=== PATIENT | female | born 1945 | race Caucasian/White ===

== ENCOUNTER 2017-02-10 04:47 | Inpatient (IN) ==
[2017-02-10] MEDS ORDERED: Furosemide 40 MG/4 ML VIAL IVP ONE (04:48)
--- NOTE | 2017-02-10 04:53 | Emergency Department Note ---
Disposition Clinical Impression: Pulmonary edema, Acute exacerbation of CHF (congestive heart failure) Disposition: Admitted As Inpatient Condition: Critical Time of Disposition: 06:18 SOB HPI - General Chief Complaint: ED Shortness of Breath/Dyspnea Stated Complaint: MORIAH Time Seen by Provider: 02/10/17 04:48 Nursing Notes Reviewed: Yes Vital Signs Reviewed: Yes - History of Present Illness Mrs. Alcantar, a 71yo female, presents from home via EMS for abrupt onset dyspnea. Onset 01:00 AM this morning. Her symptoms were severe enough she "didn't think she was going to make it." Patient had a heart catheterization Sunday morning at this facility. She states they did not place any stents. Patient has no chest pain currently and has had no chest pain during the course of her symptoms. Patient had a heart cath Sun. No Stent. Was told her left ventricular EF was appx 20%. - Related Data Home Medications Medication Instructions Recorded Confirmed Alprazolam [Xanax] 0.5 mg PO BID PRN 11/30/14 02/09/17 Amitriptyline [Elavil] 25 - 50 mg PO HS 11/30/14 02/09/17 Aspirin Enteric Coated [Aspirin EC] 81 mg PO QAM 11/30/14 02/09/17 Cholecalciferol (Vitamin D3) 2,000 unit PO BID 11/30/14 02/09/17 [Vitamin D3] Duloxetine [Cymbalta] 20 mg PO BID 11/30/14 02/09/17 Ferrous Sulfate 65 mg PO BID 11/30/14 02/09/17 Gabapentin [Neurontin] 600 mg PO QID 11/30/14 02/09/17 Insulin Glargine,Hum.rec.anlog 62 unit SQ BID 11/30/14 02/09/17 [Lantus Solostar] Insulin LISPRO [Humalog Kwikpen 28 - 34 unit SQ TIDWM PRN 11/30/14 02/09/17 U-200] Isosorbide MONOnitrate (24 HR) 120 mg PO QAM 11/30/14 02/09/17 [Imdur] Krill/Om-3/Dha/Epa/Phospho/Ast 1 cap PO BID 11/30/14 02/09/17 [Krill Oil 1,000 mg Softgel] Multivit-Min/FA/Lycopen/Lutein 1 tab PO QAM 11/30/14 02/09/17 [Centrum Silver Tablet] Simvastatin [Zocor] 40 mg PO QPM 11/30/14 02/09/17 TraMADol [Ultram] 50 mg PO Q6HR PRN 11/30/14 02/09/17 Metoprolol Succinate 50 mg PO DAILY 02/09/17 02/09/17 Ranitidine HCl [Heartburn Relief] 150 mg PO BID 02/09/17 02/09/17 Ranolazine [Ranexa] 500 mg PO BID 02/09/17 02/09/17 Allergies Allergy/AdvReac Type Severity Reaction Status Date / Time Penicillins Allergy Severe Rash Verified 02/09/17 08:29 All systems ED: reviewed and negative except as stated. Review of Systems: As Per [facility] Past Medical History - Past Medical History Medical history: Reports: arthritis, cancer, cardiomyopathy, CHF, COPD, coronary artery disease, diabetes, GERD, hyperlipidemia, hypertension, kidney stones, malignancy Surgical history: Reports: breast surgery, cancer surgery, cholecystectomy, hysterectomy, knee replacement Psychiatric history: Reports: anxiety, depression - Social History Smoking Status: Never smoker Smokeless Tobacco Status: No Alcohol use: Reports: none Drug use: Reports: none Physical Exam Vital Signs Reviewed General: Patient is alert, oriented, and in no acute distress. HEENT: No facial asymmetry. Head is normocephalic and atraumatic. PERRLA, EOMI. oral mucosa tacky. Trachea midline. Cardiovascular: Heart tachycardic rate and regular rhythm without clicks, rubs, gallops, or murmurs. No JVD. PMI nondisplaced. No pedal edema. Bilateral radial and posterior tibial pulses 2/4 and equal. Respiratory: Symmetric chest rise with poor respiratory effort. Bilateral breath sounds diminished with diffuse crackles and coarse lung sounds. Abdomen: Bowel sounds present normoactive x-4 quadrants. Abdomen is soft, nondistended, and nontender. Skin: Warm, dry Psych: Patient's affect is appropriate for situation. Course Course Narrative: Patient presents with pulmonary edema likely cardiogenic in origin. Her lung sounds are coarse with crackles throughout. She is saturating in the mid to high 80s on room air; does not use oxygen at home. Her ejection fraction is 25 % with multiple coronary artery vessel disease. Wildlife Refuge Manager report shows that aggressive medical management was recommended. Positive chest pain workup and place patient on BiPAP at this time. Patient's troponin is 0.06 BNP in the 500s. Her creatinine is elevated however this is her baseline. Patient does have a history of elevated troponin. Unknown if this is from prior cardiac events or from chronic kidney disease. I spoke with the admitting hospitalist, Dr. Perez, agreed to accept the patient. His recommendation was to start heparin on the patient while she was in the emergency department. I discussed this with the patient and her at bedside. They were concerned about risks of bleeding and preferred that I speak with Dr. Reese, her riveter portable machine. I explained to them that I cannot speak to Dr. Reese at this time of day. I discussed in detail the risks and benefits involved with using heparin in light of her multivessel severe coronary artery disease and likely cardiogenic pulmonary edema. They prefer to wait at this time to, "think about it." Vital Signs Temperature 97.9 F 02/10/17 04:48 Pulse Rate 100 02/10/17 04:48 Respiratory Rate 20 02/10/17 04:48 Blood Pressure 129/79 02/10/17 04:48 O2 Sat by Pulse Oximetry 93 02/10/17 04:48 Temperature 97.9 F 02/10/17 04:48 Pulse Rate 90 02/10/17 06:30 Respiratory Rate 19 02/10/17 06:30 Blood Pressure 109/74 02/10/17 06:30 O2 Sat by Pulse Oximetry 97 02/10/17 06:30 Oxygen Delivery Oxygen Delivery Bipap Shortness of Breath/Dyspnea - Medical Records Medical records reviewed: Yes I reviewed the patient's medical records. - Lab Data Lab results reviewed: Yes I reviewed the patient's lab results. Result diagrams: 02/10/17 06:35 02/10/17 05:02 Lab Results 02/10/17 02/10/17 02/10/17 Range/Units 05:02 05:02 05:02 WBC 8.6 (4.3-11.1) K/mcL RBC 4.29 (3.82-4.97) M/mcL Hgb 13.1 (11.5-15.4) g/dL Hct 41.0 (35.3-44.9) % MCV 95.6 (83.0-100.0) fL MCH 30.5 (28.0-33.3) pg MCHC 32.0 (31.6-35.5) g/dL RDW 13.3 (11.5-14.5) % Plt Count 212 (140-400) K/mcL MPV 10.0 (9.4-12.4) fL Immature Gran % 0.5 (0-4) % Seg Neutrophils % 77.0 % Lymphocytes % 13.3 % Monocytes % 7.0 % Eosinophils % 2.1 % Basophils % 0.1 % Neutrophils # 6.6 (1.6-8.9) K/mcL Lymphocytes # 1.1 (0.6-4.6) K/mcL Monocytes # 0.6 (0.0-1.3) K/mcL Eosinophils # 0.2 (0.0-0.6) K/mcL Basophils # 0.0 (0.0-0.2) K/mcL Immature Plt Fraction (1.1-6.1) % PT (9.4-12.1) Seconds INR Sodium 137 (136-145) mEq/L Potassium 4.6 H (3.5-4.5) mEq/L Chloride 104 (98-109) mEq/L Carbon Dioxide 24 (19-29) mEq/L BUN 24 H (7-20) mg/dL Creatinine 1.51 H (0.57-1.11) mg/dL Est GFR ( Amer) 41 L (> 60) Est GFR (Non-Af Amer) 34 L (> 60) BUN/Creatinine Ratio 16 (6-26) Glucose 211 H (70-99) mg/dL Calculated Osmolality 294 (280-300) Calcium 9.7 (8.6-10.8) mg/dL Troponin I 0.06 H* (0-0.03) ng/mL B-Natriuretic Peptide (0-100) pg/mL 02/10/17 02/10/17 02/10/17 Range/Units 05:02 05:02 06:35 WBC 8.0 (4.3-11.1) K/mcL RBC 4.07 (3.82-4.97) M/mcL Hgb 12.5 (11.5-15.4) g/dL Hct 38.5 (35.3-44.9) % MCV 94.6 (83.0-100.0) fL MCH 30.7 (28.0-33.3) pg MCHC 32.5 (31.6-35.5) g/dL RDW 13.3 (11.5-14.5) % Plt Count 209 (140-400) K/mcL MPV 10.1 (9.4-12.4) fL Immature Gran % (0-4) % Seg Neutrophils % % Lymphocytes % % Monocytes % % Eosinophils % % Basophils % % Neutrophils # (1.6-8.9) K/mcL Lymphocytes # (0.6-4.6) K/mcL Monocytes # (0.0-1.3) K/mcL Eosinophils # (0.0-0.6) K/mcL Basophils # (0.0-0.2) K/mcL Immature Plt Fraction 4.2 (1.1-6.1) % PT 11.0 (9.4-12.1) Seconds INR 1.0 Sodium (136-145) mEq/L Potassium (3.5-4.5) mEq/L Chloride (98-109) mEq/L Carbon Dioxide (19-29) mEq/L BUN (7-20) mg/dL Creatinine (0.57-1.11) mg/dL Est GFR ( Amer) (> 60) Est GFR (Non-Af Amer) (> 60) BUN/Creatinine Ratio (6-26) Glucose (70-99) mg/dL Calculated Osmolality (280-300) Calcium (8.6-10.8) mg/dL Troponin I (0-0.03) ng/mL B-Natriuretic Peptide 568 H (0-100) pg/mL - Radiology Data Radiology results reviewed: Yes I reviewed the patient's radiology results. - EKG Data EKG attestation: Yes I reviewed and interpreted this EKG. EKG results narrative: EKG dated 02/10/17 at 04:53 interpreted as sinus rhythm with a rate of 99. Normal intervals. Left axis. Left bundle branch block which is appropriately discordant and unchanged from compared to EKG. Nonspecific ST-T changes. Compared to previous EKG dated 12/01/2014 showing no acute ischemic changes. Critical Care Time Critical Care Time: Yes Total Critical Care Time: 40 Attestation: Critical care performed: Time is exclusive of separately billable procedures. Time includes: direct patient care, patient reassessment, coordination of patient care, interpretation of data (laboratory data, radiology data, and respiratory data), review of patient's medical records, medical consultation and documentation of patient care. Procedures included in critical care time: Procedures excluded from critical care time: Attestation Statement - Attestation Attestation: I, Dandre Quinonez MD, personally evaluated this patient and discussed their management with the resident physician. I reviewed the resident's note and agree with the documented findings, medical decision making, and plan of care. 71-year-old female presents to the emergency department by EMS with a complaint of shortness of breath which started about 1 AM this morning and has gotten progressively worse throughout the night. Patient unable to sleep due to shortness of breath. She denies any chest pain. Patient just had a cardiac catheterization done here yesterday. She did not have any stents placed. There has been no increased cough or fever. On examination patient is a well-developed well-nourished elderly female in no acute distress. She is alert and oriented 3. There is no cyanosis or diaphoresis. Chest is nontender to palpation. Breath sounds are equal bilaterally with bibasilar moist rales. No wheezes. Heart regular rate and rhythm. Abdomen soft and nontender with normal bowel sounds. EKG shows a normal sinus rhythm heart rate in 99 and left bundle-branch block which was present on prior EKG. Chest x-ray shows pulmonary edema. Labs reviewed. Troponin 0.06. Patient received IV Lasix and morphine and was placed on BiPAP. She had significant improvement in her dyspnea after treatment. The hospitalist, Dr. Perez, was consulted and accepted admission of the patient.
[2017-02-10] MEDS ORDERED: *HR* Morphine 2 MG/ML SYRINGE IVP ONE (04:54)
[2017-02-10 05:11] LABS: Basophils % 0.1 %; Eosinophils # 0.2 K/mcL (0.0-0.6); Eosinophils % 2.1 %; Hemoglobin 13.1 g/dL (11.5-15.4); Immature Granulocytes % 0.5 % (0-4); Lymphocytes # 1.1 K/mcL (0.6-4.6); Lymphocytes % 13.3 %; Mean Corpuscular Hemoglobin 30.5 pg (28.0-33.3); Mean Corpuscular Volume 95.6 fL (83.0-100.0); Monocytes # 0.6 K/mcL (0.0-1.3); Neutrophils # 6.6 K/mcL (1.6-8.9); Platelet Count 212 K/mcL (140-400); Red Blood Count 4.29 M/mcL (3.82-4.97); Red Cell Distribution Width 13.3 % (11.5-14.5)
[2017-02-10 05:25] LABS: Calcium 9.7 mg/dL (8.6-10.8); Potassium 4.6 mEq/L (3.5-4.5)
[2017-02-10] MEDS ORDERED: *HR* Heparin 5,000 UNIT/ML VIAL IVP ONE (06:15)
[2017-02-10] MEDS ORDERED: *HR* Heparin 5,000 UNIT/ML VIAL IVP PRN ×2 (06:15)
--- NOTE | 2017-02-10 06:20 | Internal Med History&Physical ---
Date of Encounter: 02/10/17 Time of Encounter: 06:17 Assessment and Plan (1) Flash pulmonary edema Current visit: Yes Status: Acute Flash pulmonary edema which may be related to angina equivalent patients with 3- vessel disease. Patient was placed on BiPAP in the emergency room and given IV Lasix. I will start the patient on heparin drip for possibility of an ischemic event. Patient has ischemic cardiomyopathy with ejection fraction of 25%. She had a recent angiogram shows 3 vessel disease and surgery was deemed to be high- risk in this patient and it was decided to pursue medical treatment. We will start patient on IV Lasix. (2) 3-vessel CAD Current visit: Yes Status: Acute 3 vessel disease in a diabetic patient, however her ejection fraction is 20%. Will consult cardiology again because of this event the flash pulmonary edema. (3) Diabetes mellitus type 2 in obese Current visit: No Status: Chronic Internal Medicine - H&P: HPI Chief complaint: sob History of present illness: Ms. Alcantar is a 71 year old female with history of 3 vessel disease, ischemic cardiomyopathy (EF 25%) on medical treatment presents to the emergency room today with a main complaint of shortness of breath. At approximately 1 AM as a patient was about to sleep, she started experiencing sudden onset shortness of breath at rest associated with profuse sweating and nonproductive cough. She presented to the emergency room where she was hypoxic in the 80s and was placed on BiPAP due to increased work of breathing. X-ray was suggestive of pulmonary edema. Patient denies any chest. No fevers chills. No sputum production. She mentioned that she does not take Lasix at home. Past Med Surg Social Fam HX - Past Medical History Medical history: arthritis, cancer, cardiomyopathy, CHF, COPD, coronary artery disease, diabetes, GERD, hyperlipidemia, hypertension, kidney stones, malignancy Psychiatric history: anxiety, depression - Past Surgical History Surgical History: breast surgery, cancer surgery, cholecystectomy, hysterectomy , knee replacement - Social History Smoking Status: Never smoker Smokeless Tobacco Status: No Alcohol use: none Drug use: none - Family History Mother Family Member Ethnicity: Non- Living Status: Still Living Hx Family Cardiac Disorders: Yes Hx Family Respiratory Disorders: Yes Hx Family Cancer: No Hx Family GI Disorders: No Hx Family Endocrine Disorder: Yes Hx Family Neuromuscular Disorders: Yes Hx Family Neurologic Disorders: No Hx Family HEENT Disorders: No Hx Family Autoimmune Disorders: No Father Twin of Family Member: Yes Living Status: Hx Family Cardiac Disorders: Yes Hx Family Respiratory Disorders: No Hx Family Cancer: No Hx Family GI Disorders: No Hx Family Endocrine Disorder: No Hx Family Neuromuscular Disorders: No Hx Family Neurologic Disorders: No Hx Family HEENT Disorders: No Hx Family Autoimmune Disorders: No Internal Medicine - H&P: Meds Alprazolam [Xanax] 0.5 mg PO BID PRN 11/30/14 [History] Amitriptyline [Elavil] 25 - 50 mg PO HS 11/30/14 [History] Aspirin Enteric Coated [Aspirin EC] 81 mg PO QAM 11/30/14 [History] Cholecalciferol (Vitamin D3) [Vitamin D3] 2,000 unit PO BID 11/30/14 [History] Duloxetine [Cymbalta] 20 mg PO BID 11/30/14 [History] Ferrous Sulfate 65 mg PO BID 11/30/14 [History] Gabapentin [Neurontin] 600 mg PO QID 11/30/14 [History] Insulin Glargine,Hum.rec.anlog [Lantus Solostar] 62 unit SQ BID 11/30/14 [ History] Insulin LISPRO [Humalog Kwikpen U-200] 28 - 34 unit SQ TIDWM PRN 11/30/14 [ History] Isosorbide MONOnitrate (24 HR) [Imdur] 120 mg PO QAM 11/30/14 [History] Krill/Om-3/Dha/Epa/Phospho/Ast [Krill Oil 1,000 mg Softgel] 1 cap PO BID [History] Multivit-Min/FA/Lycopen/Lutein [Centrum Silver Tablet] 1 tab PO QAM 11/30/14 [ History] Simvastatin [Zocor] 40 mg PO QPM 11/30/14 [History] TraMADol [Ultram] 50 mg PO Q6HR PRN 11/30/14 [History] Metoprolol Succinate 50 mg PO DAILY 02/09/17 [History] Ranitidine HCl [Heartburn Relief] 150 mg PO BID 02/09/17 [History] Ranolazine [Ranexa] 500 mg PO BID 02/09/17 [History] 3 Allergy/AdvReac Type Severity Reaction Status Date / Time Penicillins Allergy Severe Rash Verified 02/09/17 08:29 All Systems PM: A 10-system review of systems was performed and is negative for pertinent findings except as documented above in the HPI. Review of systems: 10 point review of systems is negative except for HPI - Constitutional Vitals: Temp Pulse Resp BP Pulse Ox 97.9 F 97 18 123/99 96 02/10/17 04:48 02/10/17 06:06 02/10/17 06:06 02/10/17 06:06 02/10/17 06:06 Exam: Gen.: patient is alert oriented times 3 not in distress cardiac: Normal S1, S2, no additional sounds or murmurs chest: bilateral basal crackles Abdomen: Soft, non tender, No rebound lower extremity Lax calf muscles no swelling Neuro: no focal deficits Internal Med - H&P Results - Labs CBC & Chem 7: 02/10/17 05:02 02/10/17 05:02 Labs: Short CBC 02/10/17 Range/Units 05:02 WBC 8.6 (4.3-11.1) K/mcL Hgb 13.1 (11.5-15.4) g/dL Hct 41.0 (35.3-44.9) % Plt Count 212 (140-400) K/mcL Neutrophils # 6.6 (1.6-8.9) K/mcL BMP 02/10/17 05:02 Sodium 137 Potassium 4.6 H Chloride 104 Carbon Dioxide 24 BUN 24 H Creatinine 1.51 H Glucose 211 H Calcium 9.7 Cardiac Enzymes 02/10/17 Range/Units 05:02 Troponin I 0.06 H* (0-0.03) ng/mL - Impressions ITS Impressions Chest X-Ray 02/10/17 04:48 IMPRESSION: Pulmonary edema. D/ / Elvis Dwyer MD / Elvis Dwyer MD Interpreting Provider: Elvis Dwyer MD
[2017-02-10 06:42] LABS: Hematocrit 38.5 % (35.3-44.9); Hemoglobin 12.5 g/dL (11.5-15.4); Immature Platelets 4.2 % (1.1-6.1); Mean Corpuscular HGB Conc 32.5 g/dL (31.6-35.5); Mean Corpuscular Hemoglobin 30.7 pg (28.0-33.3); Mean Corpuscular Volume 94.6 fL (83.0-100.0); Mean Platelet Volume 10.1 fL (9.4-12.4); Red Blood Count 4.07 M/mcL (3.82-4.97); Red Cell Distribution Width 13.3 % (11.5-14.5)
[2017-02-10 06:47] LABS: Activated Partial Thrombo Time 25.3 Seconds (26.0-36.0)
--- NOTE | 2017-02-10 09:40 | Cardiology Consult Note ---
<Earl Zamora - Last Filed: 02/10/17 09:47> Date of Encounter: 02/10/17 Time of Encounter: 09:34 Assessment and Plan (1) Elevated troponin Current Visit: Yes Status: Acute Mild troponin elevation at 0.06 in the setting of pulmonary edema and hypoxia. Continue to trend. Newly diagnosed with systolic CHF and three vessel CAD yesterday. [facility] 02/09/17-20% stenosis in the LMCA. Distal LAD and 1st DX is small in size. 60% stenosis in the Mid LAD- FFR 0.83. 70% stenosis in the Distal LAD- small vessel 70% stenosis in the 1st Diagonal- small vessel. 50% stenosis in the Mid Circumflex- FFR 0.96. 60% stenosis in the 1st Marginal. 90% stenosis in the Left PDA- small vessel. Right Coronary Artery is small and non-dominant. 95% stenosis in the Mid RCA. EF 25%. No intervention. Medical management recommended. TTE 01/24/17-Severe LV systolic dysfunction, LVEF 20%. There is global LV hypokinesis. Mild concentric left ventricular hypertrophy. Elevated LV filling pressure. Normal right ventricular size and function. No significant valvular dysfunction. Unable to estimate RVSP due to inadequate TR jet. Agree with heparin gtt per ACS protocal until further trending of troponin. Check asa, statin, and bb. Dr. Ruiz to review [facility] films. Further recommendation to follow. (2) Acute on chronic systolic CHF (congestive heart failure) Current Visit: Yes Status: Acute EF recently found to be 20% with severe global dysfunction. EF 25% on [facility] . Developed pulmonary edema last night. Secondary to IV fluid andreea procedure vs ACS. Agree with IV lasix. Trend troponin. Strict I&O. Low sodium diet. CHF education reviewed. Continue toprol XL. No keanu inhibitor at this time Known CKD s/p [facility] yesterday. If kidney function remains stable will consider adding. may need maintenance lasix at discharge. (3) 3-vessel coronary artery disease Current Visit: No Status: Chronic Asa, statin, bb. Discussion w patient/family: The assessment and plan as outlined above was discussed with the patient and/or family members who expressed understanding and agreement. All questions were answered. Thank you for involving us in the care of your patient. Please call with any questions. History of Present Illness Consult date: 02/10/17 Requesting physician: Pastor Perez Consult reason: Pulmonary edema after LHC Chief complaint: SOB History of present illness: Ms. Alcantar is a 71 year old female with a history of recently diagnosed three vessel CAD, DM type II, HTN, HLD, CKD, and COPD who presents with sudden onset of SOB that woke her from her sleep. She underwent out-patient diagnostic LHC yesterday that revealed severe three vessel CAD and EF 25%. No intervention. There was no complications from her procedure and she was sent home with outpatient f/u with her advanced practice registered nurse. She was started on IV lasix and is responding well. She also admits to constant left shoulder pain that continues. The pain is what prompted her cardiac work-up. Her pain sometimes radiated to her jaw. Past Med Surg Social Fam HX - Past Medical History Medical history: arthritis, cancer, cardiomyopathy, CHF, COPD, coronary artery disease, diabetes, GERD, hyperlipidemia, hypertension, kidney stones, malignancy Psychiatric history: anxiety, depression - Past Surgical History Surgical History: breast surgery, cancer surgery, cholecystectomy, hysterectomy , knee replacement - Social History Smoking Status: Never smoker Smokeless Tobacco Status: No Alcohol use: none Drug use: none - Family History Mother Family Member Ethnicity: Non- Living Status: Still Living Hx Family Cardiac Disorders: Yes Hx Family Respiratory Disorders: Yes Hx Family Cancer: No Hx Family GI Disorders: No Hx Family Endocrine Disorder: Yes Hx Family Neuromuscular Disorders: Yes Hx Family Neurologic Disorders: No Hx Family HEENT Disorders: No Hx Family Autoimmune Disorders: No Father Twin of Family Member: Yes Living Status: Hx Family Cardiac Disorders: Yes Hx Family Respiratory Disorders: No Hx Family Cancer: No Hx Family GI Disorders: No Hx Family Endocrine Disorder: No Hx Family Neuromuscular Disorders: No Hx Family Neurologic Disorders: No Hx Family HEENT Disorders: No Hx Family Autoimmune Disorders: No Medications and Allergies Alprazolam [Xanax] 0.5 mg PO TID PRN 11/30/14 [History] Amitriptyline [Elavil] 25 - 50 mg PO HS 11/30/14 [History] Aspirin Enteric Coated [Aspirin EC] 81 mg PO QAM 11/30/14 [History] Gabapentin [Neurontin] 600 mg PO QID 11/30/14 [History] Insulin Glargine,Hum.rec.anlog [Lantus Solostar] 62 unit SQ BID 11/30/14 [ History] Insulin LISPRO [Humalog Kwikpen U-200] 20 - 26 unit SQ TIDWM PRN 11/30/14 [ History] Isosorbide MONOnitrate (24 HR) [Imdur] 120 mg PO QAM 11/30/14 [History] Krill/Om-3/Dha/Epa/Phospho/Ast [Krill Oil 1,000 mg Softgel] 1 cap PO BID [History] Multivit-Min/FA/Lycopen/Lutein [Centrum Silver Tablet] 1 tab PO QAM 11/30/14 [ History] Simvastatin [Zocor] 20 mg PO QPM 11/30/14 [History] TraMADol [Ultram] 50 mg PO Q6HR PRN 11/30/14 [History] Metoprolol Succinate 50 mg PO DAILY 02/09/17 [History] Ranitidine HCl [Heartburn Relief] 150 mg PO BID 02/09/17 [History] Ranolazine [Ranexa] 500 mg PO BID 02/09/17 [History] DULoxetine [Cymbalta] 30 mg PO BID 02/10/17 [History] 3 Allergy/AdvReac Type Severity Reaction Status Date / Time Penicillins Allergy Severe Rash Verified 02/09/17 08:29 All Systems Review: A 10-system review of systems was performed and is negative for pertinent findings except as documented above in the HPI. Physical Examination Vital Signs Temp Pulse Resp BP Pulse Ox 02/10/17 07:46 98.2 F 91 18 137/81 96 02/10/17 06:30 90 19 109/74 97 02/10/17 06:06 97 18 123/99 96 02/10/17 05:25 92 15 104/68 97 02/10/17 05:23 98 02/10/17 05:00 19 112/86 100 02/10/17 04:48 97.9 F 100 20 129/79 93 Intake and Output 02/09/17 02/10/17 02/10/17 23:59 07:59 15:59 Other: Weight 80.739 kg Blood Glucose* 183 Patient Weight 02/10/17 23:59 Weight 80.739 kg General: Conversant, No Apparent Distress HEENT: Atraumatic, Normocephaly, Mucus Membranes Moist Neck: No JVD, Normal carotid pulses Cardiac: Reg Rate and Rhythm, Normal S1 and S2, No Murmur Lungs: Normal Breath Sounds, No Wheeze, Rales, Rhonchi Neuro: Alert and responsive, No focal deficits noted Abdomen: Soft, Non-Tender, Other (abdomen round but soft. ) Skin: No rashes noted on visualized skin Musculoskeletal: No Chest Wall Tenderness Extremities: No Clubbing, No Cyanosis, No Edema, Normal Pulses Results 02/10/17 06:35 02/10/17 05:02 - Imaging and Cardiology Echo: report reviewed Cardiac cath: report reviewed Consult Discharge Plan - Plan Referrals: Merlene Lazo CNP [Primary Care Provider] - <Zaheer Ruiz - Last Filed: 02/10/17 22:04> Date of Encounter: 02/10/17 - Attending Attestation I have personally performed a face to face evaluation on this patient. I have reviewed and agree with the care plan. History and Exam by me shows: 71 YOF with h/o CAD and disease as outlined above. Presents with chest pain and worsening HOWARD with dynamic troponins. EF 20%on most recent ECHO with no significant valvular abnormalities. Recommend LHC and possible PCI of the OM3 and reevaluation with FFR of the mid LAD (previous FFR .83) Will start ACS meds meanwhile and repeat troponins. Assessment and Plan Discussion w patient/family: The assessment and plan as outlined above was discussed with the patient and/or family members who expressed understanding and agreement. All questions were answered. Thank you for involving us in the care of your patient. Please call with any questions. History of Present Illness History of present illness: Ms. Alcantar is a 71 year old female All Systems Review: A 10-system review of systems was performed and is negative for pertinent findings except as documented above in the HPI. Physical Examination Vital Signs, Last 4 Hours Temp Pulse Resp BP Pulse Ox 02/10/17 19:47 98.5 F 74 18 120/80 97 02/10/17 19:20 84 Results 02/10/17 06:35 02/10/17 05:02 Lab Results 02/10/17 02/10/17 11:14 16:28 APTT 75.6 H D Troponin I 0.43 H*
[2017-02-10] MEDS: Insulin LISPRO 300 UNITS/3 ML VIAL SQ SCH ×4 (09:51→20:57)
[2017-02-10] MEDS: Furosemide 20 MG/2 ML VIAL IVP SCH (09:58)
[2017-02-10] MEDS: Isosorbide MONOnitrate (24 HR) 60 MG TAB.ER.24H PO SCH (10:00)
[2017-02-10] MEDS: Ranolazine 500 MG TAB.ER.12H PO SCH ×2 (10:00→20:56)
[2017-02-10] MEDS: Famotidine 20 MG TABLET PO SCH ×2 (10:00→20:57)
[2017-02-10] MEDS: Aspirin Enteric Coated 81 MG Tablet PO SCH (10:00)
[2017-02-10] MEDS: Metoprolol XL (24 HR) Succ 50 MG TAB.ER.24H PO SCH (10:00)
[2017-02-10] MEDS: Heparin 25,000 UNIT/500 ML D5W 25,000 UNIT/500 ML MLS IVC SCH (10:04)
[2017-02-11] MEDS: Aspirin Enteric Coated 81 MG Tablet PO SCH (07:56)
[2017-02-11] MEDS: Metoprolol XL (24 HR) Succ 50 MG TAB.ER.24H PO SCH (07:56)
[2017-02-11] MEDS: Isosorbide MONOnitrate (24 HR) 60 MG TAB.ER.24H PO SCH (07:56)
[2017-02-11] MEDS: Famotidine 20 MG TABLET PO SCH (07:56)
[2017-02-11] MEDS: Ranolazine 500 MG TAB.ER.12H PO SCH ×2 (07:56→20:20)
[2017-02-11] MEDS: Furosemide 20 MG/2 ML VIAL IVP SCH (07:56)
[2017-02-11] MEDS: Insulin LISPRO 300 UNITS/3 ML VIAL SQ SCH ×4 (07:58→23:45)
[2017-02-11] MEDS: Heparin 25,000 UNIT/500 ML D5W 25,000 UNIT/500 ML MLS IVC SCH (09:24)
--- NOTE | 2017-02-11 11:42 | Cardiology Progress Note ---
Date of Encounter: 02/11/17 Time of Encounter: 11:41 Assessment and Plan (1) Elevated troponin Current Visit: Yes Status: Acute Troponin elevation at 0.06, 0.43, 0.49 concerning for NSTEMI, known 3 vessel CAD. Also in the setting of pulmonary edema and hypoxia. She did have left shoulder pain. EKG LBBB, not new. Newly diagnosed with systolic CHF and three vessel CAD. [facility] 02/09/17-20% stenosis in the LMCA. Distal LAD and 1st DX is small in size. 60% stenosis in the Mid LAD- FFR 0.83. 70% stenosis in the Distal LAD- small vessel 70% stenosis in the 1st Diagonal- small vessel. 50% stenosis in the Mid Circumflex- FFR 0.96. 60% stenosis in the 1st Marginal. 90% stenosis in the Left PDA- small vessel. Right Coronary Artery is small and non-dominant. 95% stenosis in the Mid RCA. EF 25%. No intervention. Medical management recommended. TTE 01/24/17-Severe LV systolic dysfunction, LVEF 20%. There is global LV hypokinesis. Mild concentric left ventricular hypertrophy. Elevated LV filling pressure. Normal right ventricular size and function. No significant valvular dysfunction. Unable to estimate RVSP due to inadequate TR jet. [facility] films reviewed by Dr. Ruiz. Recommends LHC and possible PCI to OM severe vessel disease. Continue heparin gtt per ACS protocal. Asa, statin, and bb. Continue imdur and ranexa. NPO after midnight. Monitor creatinine. CKD. If creatinine increases-consider nephrology consult. (2) Acute on chronic systolic CHF (congestive heart failure) Current Visit: Yes Status: Acute EF recently found to be 20% with severe global dysfunction. EF 25% on [facility] . Developed pulmonary edema. continue IV lasix. Strict I&O. Low sodium diet. CHF education reviewed. Continue toprol XL. No keanu inhibitor at this time Known CKD s/p [facility] yesterday. If kidney function remains stable will consider adding. may need maintenance lasix at discharge. (3) 3-vessel coronary artery disease Current Visit: No Status: Chronic Asa, statin, bb. Discussion w patient/family: The assessment and plan as outlined above was discussed with the patient and/or family members who expressed understanding and agreement. All questions were answered. Thank you for involving us in the care of your patient. Please call with any questions. Subjective Principal diagnosis: Dyspnea, pulmonary edema Interval history: Reports she is feeling better. Denies left shoulder pain. Objective Vital Signs, Last 4 Hours Temp Pulse Resp BP Pulse Ox 02/11/17 11:12 98.0 F 79 18 112/64 97 General: Conversant, No Apparent Distress HEENT: Atraumatic, Normocephaly, Mucus Membranes Moist Neck: No JVD, Normal carotid pulses Cardiac: Reg Rate and Rhythm, Normal S1 and S2, No Murmur Lungs: Normal Breath Sounds, No Wheeze, Rales, Rhonchi, Other (diminished bases) Neuro: Alert and responsive, No focal deficits noted Abdomen: Soft, Non-Tender Skin: No rashes noted on visualized skin Musculoskeletal: No Chest Wall Tenderness Extremities: No Clubbing, No Cyanosis, No Edema, Normal Pulses Results 02/10/17 06:35 02/10/17 05:02 Lab Results 02/10/17 02/10/17 02/10/17 11:14 16:28 22:18 APTT 75.6 H D 75.1 H Troponin I 0.43 H* 02/10/17 02/11/17 22:18 04:28 APTT 69.5 H Troponin I 0.39 H* - Imaging and Cardiology Echo: report reviewed Cardiac cath: report reviewed - EKG Interpretation EKG results cardiology: personally reviewed Consult Discharge Plan - Plan Referrals: Merlene Lazo ENGINEERING INSPECTOR [Primary Care Provider] -
--- NOTE | 2017-02-11 14:00 | Internal Med Progress Note ---
Date of Encounter: 02/11/17 Time of Encounter: 09:00 - Assessment and plan (1) NSTEMI (non-ST elevated myocardial infarction) Current Visit: Yes Status: Acute Assessment and plan: Non-ST elevation CO - with elevated troponin - currently asymptomatic Patient initially presented with flash pulmonary edema Continue IV Heparin per protocol, Aspirin, Plavix, Zocor Continue Ranexa, Imdur, hold ACEi/ARB due to CKD [facility] (02/09/2017) - triple-vessel coronary artery disease with severe global LV dysfunction with EF 25%. Patient had distal lesions and vessels were too small for stenting. Patient will need repeat [facility] for non-STEMI on this admission. Possible PCI to OM severe vessel disease Troponin - 0.39 BNP - 568 EKG - sinus rhythm, nonspecific ST-T changes, no acute changes when compared to previous EKG Chest x-ray - pulmonary edema Echocardiogram - LVEF 20%, global LV hypokinesis Cardiology following - appreciate input, [facility] in the morning Cardiac telemetry, labs in a.m., monitor closely (2) Acute on chronic systolic CHF (congestive heart failure) Current Visit: Yes Status: Acute Assessment and plan: Acute exacerbation of CHF systolic dysfunction LVEF 20-25% - ischemic cardiomyopathy - newly diagnosed - currently asymptomatic Patient initially presented with flash pulmonary edema Continue IV Lasix, Toprol-XL, Imdur, Ranexa, hold ACEi/ARB due to CKD Chest x-ray - pulmonary edema BNP - 568 Troponin - 0.39 Echocardiogram - LVEF 20%, global LV hypokinesis, normal RV size and function Cardiology following - appreciate input Cardiac telemetry, fluid restriction, strict I's and O's, daily weight (3) 3-vessel coronary artery disease Current Visit: No Status: Acute Assessment and plan: Recent C - three-vessel coronary artery disease with LVEF 25% Plan as above (4) CKD (chronic kidney disease), stage III Current Visit: Yes Status: Chronic Assessment and plan: Chronic kidney disease stage III, stable - likely at baseline Hold ACEi/ARB in view of CKD Labs in a.m. (5) COPD (chronic obstructive pulmonary disease) Current Visit: Yes Status: Chronic Assessment and plan: COPD, stable - not in exacerbation - not on any meds at home Continue DuoNeb breathing treatment PRN, O2 via nasal cannula Qualifiers: COPD type: unspecified COPD Qualified Code(s): J44.9 - Chronic obstructive pulmonary disease, unspecified (6) Diabetes mellitus type 2 in obese Current Visit: No Status: Chronic Assessment and plan: Type 2 diabetes mellitus, insulin-dependent, hyperglycemia Continue Levemir, insulin sliding scale, glucose checks (7) Anxiety Current Visit: Yes Status: Chronic Assessment and plan: Chronic anxiety with depression, stable Continue home dose of Elavil, Cymbalta, Xanax as needed (8) Hypertension Current Visit: Yes Status: Chronic Assessment and plan: Essential hypertension, controlled, monitor Continue Toprol-XL, Imdur Qualifiers: Hypertension type: essential hypertension Qualified Code(s): I10 - Essential (primary) hypertension (9) DVT prophylaxis Current Visit: Yes Status: Acute Assessment and plan: Continue IV heparin - Time Spent With Patient 25 - 35 minutes - Subjective Interval history: Examined this morning. Patient is awake and alert. Not in any distress. Patient denies chest pain at this time he denies shortness of breath. States she feels better. No fever. Hemodynamically stable. No other acute events or complaints. Admitted for elevated troponin and flash pulmonary edema. Patient had a recent LHC revealed triple-vessel coronary artery disease with severe global LV dysfunction with EF 25%. Patient had distal lesions and vessels were too small for stenting. Patient will need repeat LHC for non-STEMI on this admission. Possible PCI to OM severe vessel disease. Continue heparin drip. - Constitutional Vitals: Temp Pulse Resp BP Pulse Ox 98.0 F 79 18 112/64 97 02/11/17 11:12 02/11/17 11:12 02/11/17 11:12 02/11/17 11:12 02/11/17 11:12 General appearance: Present: cooperative, A&O X 3, pleasant, no acute distress, obese, answers questions appropriately - Head Head exam: Present: atraumatic - Eye Eye exam: Present: EOMI - ENT ENT exam: Present: mucous membranes moist - Respiratory Respiratory exam: Present: rales (Mild bibasilar). Absent: rhonchi, wheezes, tachypnea - Cardiovascular Cardiovascular exam: Present: RRR, +S1, +S2, systolic murmur - GI/Abdominal GI/Abdominal exam: Present: soft. Absent: distended, firm, guarding, tenderness - Extremities Exam Extremities exam: Present: radial pulses palpable and symmetrical. Absent: calf tenderness, cyanotic, pedal edema - Neurological Exam Neurological exam: Present: alert, oriented X3, no focal deficits. Absent: facial droop, speech deficit Internal Medicine: Result - Labs CBC & Chem 7: 02/10/17 06:35 02/10/17 05:02 Labs: Cardiac Enzymes 02/10/17 Range/Units 22:18 Troponin I 0.39 H* (0-0.03) ng/mL - ABG Interpretation ABG results: PT/INR, D-dimer PT 11.0 Seconds (9.4-12.1) 02/10/17 05:02 Consult Discharge Plan - Plan Referrals: Clifton,Merlene Horan CNP [Primary Care Provider] -
[2017-02-11] MEDS ORDERED: ALPRAZolam 0.5 MG TABLET PO PRN (14:19)
[2017-02-11] MEDS: Insulin DETEMIR 100 UNIT/ML X5UNITS SQ SCH (20:20)
[2017-02-12 03:57] LABS: Potassium 4.2 mEq/L (3.5-4.5)
[2017-02-12] MEDS: Insulin LISPRO 300 UNITS/3 ML VIAL SQ SCH ×4 (05:57→23:56)
[2017-02-12] MEDS: Famotidine 20 MG TABLET PO SCH (07:40)
--- NOTE | 2017-02-12 08:30 | Internal Med Progress Note ---
<Patricio Molina - Last Filed: 02/12/17 13:24> Date of Encounter: 02/12/17 Time of Encounter: 08:29 - Assessment and plan (1) NSTEMI (non-ST elevated myocardial infarction) Current Visit: Yes Status: Acute Assessment and plan: Cardiology consulted and have decided on repeating LHC for possible PCI to OM She is currently on heparin ggt and has been NPO since midnight awaiting the procedure Troponins were 0.06 - 0.43 - 0.39 Currently not complaining of chest pain or shortness of breath at rest Continue ASA, BB, statin, Ranexa, Imdur (2) Acute on chronic systolic CHF (congestive heart failure) Current Visit: Yes Status: Acute Assessment and plan: LHC on 02/09 demonstrated EF of 25% in setting of 3 vessel disease She developed pulmonary edema but this has clinically improved with Lasix, which has been changed to 20 mg PO Will plan on adding ACEi if her kidney function remains stable (3) CKD (chronic kidney disease), stage III Current Visit: Yes Status: Chronic Assessment and plan: Cr is 1.65 today which is slightly increased since admission, but still near her baseline Cardiology has spoken with nephrology who recommends on IVF and Mucomyst for renal protection during time of LHC Continue to monitor kidney function and avoid nephrotoxic agents (4) 3-vessel CAD Current Visit: Yes Status: Acute Assessment and plan: ASA, statin, BB, Imdur, Ranexa per cardiology as above (5) Hypertension Current Visit: Yes Status: Chronic Assessment and plan: Blood pressures stable over past few days Continue home Toprol Qualifiers: Hypertension type: essential hypertension Qualified Code(s): I10 - Essential (primary) hypertension (6) Diabetes mellitus type 2 in obese Current Visit: No Status: Chronic Assessment and plan: Sugars have remained under 200 today Continue q6 accuchecks while patient is NPO Basal dose of 62 units BID which matches her home dose (7) Anxiety Current Visit: Yes Status: Chronic Assessment and plan: Continue home dose of Elavil, Cymbalta, Xanax as needed (8) COPD (chronic obstructive pulmonary disease) Current Visit: Yes Status: Chronic Assessment and plan: Not currently in exacerbation She does not take any oxygen or inhalers at home but may benefit from both prior to discharge Qualifiers: COPD type: unspecified COPD Qualified Code(s): J44.9 - Chronic obstructive pulmonary disease, unspecified (9) DVT prophylaxis Current Visit: Yes Status: Acute Assessment and plan: Currently on Heparin ggt - Subjective Interval history: Pt seen and examined. She states she is feeling better this morning in terms of her breathing and is not struggling for air while at rest. Does not complain of any chest discomfort and had no issues with dinner last night. No fever, diarrhea, chills. She did not require BiPAP last night either but is still on nasal cannula. Confirms she has no oxygen, breathing treatments at home even though she has been diagnosed with COPD. - Constitutional Vitals: Temp Pulse Resp BP Pulse Ox 98.4 F 82 18 123/77 96 02/12/17 08:06 02/12/17 08:06 02/12/17 08:06 02/12/17 08:06 02/12/17 08:06 General appearance: Present: cooperative, pleasant, no acute distress, obese, answers questions appropriately - Head Head exam: Present: atraumatic, normocephalic - Eye Eye exam: Present: PERRL, conjuntiva pink, sclera anicteric - Neck Neck exam general surgery: Present: supple, trachea midline. Absent: lymphadenopathy - Respiratory Respiratory exam: Present: decreased breath sounds. Absent: accessory muscle use, rales, rhonchi, wheezes - Cardiovascular Cardiovascular exam: Present: distant heart sounds, RRR, +S1, +S2. Absent: diastolic murmur, gallop, rubs, systolic murmur - GI/Abdominal GI/Abdominal exam: Present: normal bowel sounds, soft, no peritoneal signs. Absent: distended, tenderness - Extremities Exam Extremities exam: Present: pedal edema (trace), warm, radial pulses palpable and symmetrical. Absent: calf tenderness, cyanotic, mottling - Neurological Exam Neurological exam: Present: alert, no focal deficits. Absent: pronater drift, facial droop, speech deficit - Skin Skin exam: Present: dry, intact Internal Medicine: Result - Labs CBC & Chem 7: 02/10/17 06:35 02/12/17 03:10 Labs: BMP 02/12/17 03:10 Sodium 136 Potassium 4.2 Chloride 102 Carbon Dioxide 27 BUN 32 H Creatinine 1.65 H Glucose 228 H Calcium 9.0 - ABG Interpretation ABG results: PT/INR, D-dimer PT 11.0 Seconds (9.4-12.1) 02/10/17 05:02 Consult Discharge Plan - Plan Referrals: Merlene Lazo CNP [Primary Care Provider] - (SENT WEB REQUEST ON 02-12-17 @ 2382) <Zackery-Jose Manuel Medina - Last Filed: 02/12/17 16:54> Date of Encounter: 02/12/17 - Assessment and plan (1) NSTEMI (non-ST elevated myocardial infarction) Current Visit: Yes Status: Acute (2) Acute on chronic systolic CHF (congestive heart failure) Current Visit: Yes Status: Acute (3) 3-vessel coronary artery disease Current Visit: No Status: Acute (4) CKD (chronic kidney disease), stage III Current Visit: Yes Status: Chronic (5) COPD (chronic obstructive pulmonary disease) Current Visit: Yes Status: Chronic Qualifiers: COPD type: unspecified COPD Qualified Code(s): J44.9 - Chronic obstructive pulmonary disease, unspecified (6) Diabetes mellitus type 2 in obese Current Visit: No Status: Chronic (7) Anxiety Current Visit: Yes Status: Chronic (8) Hypertension Current Visit: Yes Status: Chronic Qualifiers: Hypertension type: essential hypertension Qualified Code(s): I10 - Essential (primary) hypertension (9) DVT prophylaxis Current Visit: Yes Status: Acute - Constitutional Vitals: Temp Pulse Resp BP Pulse Ox 98.3 F 75 18 103/73 98 02/12/17 11:39 02/12/17 11:39 02/12/17 11:39 02/12/17 11:39 02/12/17 11:39 Internal Medicine: Result - Labs CBC & Chem 7: 02/10/17 06:35 02/12/17 03:10 Labs: BMP 02/12/17 03:10 Sodium 136 Potassium 4.2 Chloride 102 Carbon Dioxide 27 BUN 32 H Creatinine 1.65 H Glucose 228 H Calcium 9.0 - ABG Interpretation ABG results: PT/INR, D-dimer PT 11.0 Seconds (9.4-12.1) 02/10/17 05:02 - Attending Attestation I examined this patient and my medical decision-making was reviewed with the Resident Physician. I agree with the documented findings, disposition and treatment plan as described except to the extent set forth below. I have seen and examined the patient. Patient is scheduled for a LHC today. Possible PCI to OM. She is on IV heparin and has been NPO since midnight. Her acute CHF exacerbation is now improved with Lasix. She does have chronic kidney disease stage III and her creatinine is 1.65. Nephrology recommends IV fluids and Mucomyst for renal protection. Continue Accu-Cheks and basal dose of insulin. Patient and family have been explained about her condition and plan of care in detail. They understood and agreed. No unanswered questions. Heart rate 82, blood pressure 103/73, O2 sat 98%. Heart S1-S2 positive no murmurs or rubs. Lungs bilateral good entry no wheeze or crackles. Abdomen soft nontender. Extremities all pulses strong, no edema.
[2017-02-12] MEDS: Metoprolol XL (24 HR) Succ 50 MG TAB.ER.24H PO SCH (08:43)
[2017-02-12] MEDS: Ranolazine 500 MG TAB.ER.12H PO SCH ×2 (08:43→20:06)
[2017-02-12] MEDS: Isosorbide MONOnitrate (24 HR) 60 MG TAB.ER.24H PO SCH (08:43)
[2017-02-12] MEDS: Furosemide 20 MG/2 ML VIAL IVP SCH (08:44)
[2017-02-12] MEDS: Aspirin Enteric Coated 81 MG Tablet PO SCH (08:44)
[2017-02-12] MEDS: Insulin DETEMIR 100 UNIT/ML X5UNITS SQ SCH ×2 (09:00→20:06)
--- NOTE | 2017-02-12 11:46 | Event Note ---
Date of Encounter: 02/12/17 Time of Encounter: 09:00 - Cardiology Event Note Planing for C as discussed for NSTEMI. R/B/A of procedure reviewed. Kidney function appears to be near baseline. Given IV diuretic for pulmonary edema. Will change to oral lasix today. Nephrology called and notified of pending procedure. Recommended to start mucomyst and give gentle IV hydration if tolerated andreea-procedure. EF 20% will need monitored closely for fluid overload. Patient agrees to proceed as recommended.
[2017-02-12] MEDS: Heparin 25,000 UNIT/500 ML D5W 25,000 UNIT/500 ML MLS IVC SCH (11:54)
[2017-02-12] MEDS ORDERED: 0.9 % Sodium Chloride 1,000 ML IVC SCH (12:00)
[2017-02-12] MEDS ORDERED: Adenosine 90 MG/30 ML MLS IV ONE (12:53)
[2017-02-12] MEDS: *HR* Acetylcysteine 20% 600 MG/3 ML ORAL SYRINGE PO SCH ×2 (13:19→21:07)
[2017-02-12] MEDS ORDERED: 0.9 % Sodium Chloride 2,000 ML ONE (16:10)
[2017-02-12] MEDS ORDERED: Nitroglycerin 1,000 MCG/10 ML VIAL IV ONE (16:10)
[2017-02-12] MEDS ORDERED: Heparin 1,000 UNITS/500 mL NS 500 ML ONE (16:10)
[2017-02-12] MEDS ORDERED: *HR* Heparin 10,000 UNIT/10 ML VIAL ONE (16:10)
--- NOTE | 2017-02-12 16:13 | Pre-Sedation Evaluation ---
Pre-sedation evaluation - Pre-sedation checklist Date of procedure: 02/12/17 Procedure: [facility] Recent Vitals: Last Vital Signs Temp 98.3 F 02/12/17 11:39 Pulse 75 02/12/17 11:39 Resp 18 02/12/17 11:39 BP 103/73 02/12/17 11:39 Pulse Ox 98 02/12/17 11:39 H&P (including ROS) documented in medical record: Yes Previous reaction to sedatives/anesthetics: No Dietary Status: NPO after Midnight Airway Assessment: Patient can open mouth completely, TMJ function normal Dentition: full dentition Possible difficult airway: No ASA Classification *see protocol: CLASS III-Severe systemic disease Plan of Care: Pt appropriate candidate for procedure/moderate/conscious sedation , Risks/benefits of procedure/sedation discussed w/ patient/family, If not NPO; Risk of intake outweiged by necessity to perform procedure
[2017-02-12] MEDS ORDERED: *HR* Midazolam HCl 2 MG/2 ML VIAL ONE ×2 (16:24→17:17)
--- NOTE | 2017-02-12 16:57 | Electrocardiograph Report ---
[address] [place], [place] [address] Test Date: 2017-02-10 Pat Name: Megha Alcantar Department: 102 Room: 2N14 Gender: F Rn Compliance: : 1945 Requested By: Kali Chan Order Number: [id number] Reading MD: Katarzyna Lawson Measurements Intervals [place] Rate: 99 P: 34 GA: 177 QRS: -30 QRSD: 160 T: 133 QT: 400 QTc: 456 Interpretive Statements SINUS RHYTHM LEFT BUNDLE BRANCH BLOCK Electronically Signed On 02-12-2017 16:56:13 EDT by Katarzyna Lawson
[2017-02-12] MEDS: 0.9 % Sodium Chloride 1,000 ML IVC SCH (18:15)
--- NOTE | 2017-02-12 18:16 | Invasive Diagnostic Lab Proc ---
Name: Megha Alcantar Date of Study: 02/12/2017 Date: 1945 Ht: 61.0in Medical Record#: [id number] Age: 71 Wt: 171.96lb Gender: Female BSA: 1.77 Order #: [id number] BMI: 32.47 Physicians Procedure Physician: Arron Lizarraga DO Referring MD: Referring MD: Staff Name Position Time In Esau Shirley RT (R) Scrub 04:20 PM Randall Dickinson RN Monitor 04:21 PM Florina Garner RN Group Reservations Coordinator 04:21 PM Lila Cochran RN Group Reservations Coordinator 04:21 PM Elvira Crain RN Monitor 04:21 PM Indications Indication Non-Stemi Procedures Performed Procedure L HRT ARTERY/VENTRICLE ANGIO PRQ CARD BM STENT W/ANGIO 1 VSL PRQ CARD STENT W/ANGIO ADDL IV Doppler BLD Flow 1st Vessel IV Doppler BLD Flow Ad'l Vessel Pre-Procedure Checklist Informed consent is complete signed and on chart. H&P is on chart. ID band is on and ID verified with patient. Patient NPO for procedure The procedure was described for the patient and questions were answered. Blood Pressure: 137/93 ECG is on chart. Rhythm: NSR Plan of Care Patient will tolerate the procedure without complications. Adequate level of comfort will be maintained. Hemodynamics will remain stable Patient will recover from procedure without complications. Respiratory function will be maintained. Cardiac rhythm will remain stable. Patient temperature will be maintained. Patient and/or family have verbalized understanding of the procedure. Patient Education Chief Complaint/Reason for Test: Cardiac Cath Developmental Category: Geriatric (65+ years) Developmentally Appropriate for Age: Yes Learning Barriers: None Education Needs: Procedure Education Method: Verbal Information Taught: Cardiac Cath Educational Evaluation: Able to repeat information Intravenous Access Time IV Size Location DC'd Fluid/Drip Rate Units RN 20g 1 1/" Patent On Arrival Allergies Penicillins PCN Vital Signs Time BP (mmHg) HR (bpm) O2 Sat. RR (bpm) LOC 04:25 PM / % 5 = Fully awake and oriented or at pre-proc level 04:25 PM / % 4 = Oriented but drowsy 04:40 PM / % 4 = Oriented but drowsy 04:55 PM / % 4 = Oriented but drowsy 05:10 PM / % 4 = Oriented but drowsy 04:27 PM 137 / 93 86 98 % 16 04:32 PM 145 / 88 83 97 % 18 04:37 PM 148 / 94 88 99 % 26 04:42 PM 153 / 94 87 98 % 19 04:47 PM 148 / 93 86 98 % 16 04:52 PM 138 / 83 88 95 % 23 04:57 PM 138 / 76 87 97 % 20 05:02 PM 118 / 74 81 92 % 22 05:07 PM 112 / 59 82 94 % 21 05:12 PM 129 / 64 89 100 % 21 05:17 PM 146 / 90 84 100 % 21 05:22 PM 152 / 91 78 100 % 22 05:27 PM 147 / 105 78 96 % 11 05:32 PM 149 / 91 81 96 % 21 05:37 PM 138 / 91 81 98 % 13 05:42 PM 148 / 79 76 97 % 12 05:27 PM / % 4 = Oriented but drowsy Procedural Medications Time Medication Dose Units Method Given By 04:24 PM Oxygen 2 L/min nasal cannula Florina Garner RN 04:28 PM Versed 2 mg Intravenous Florina Garner RN 04:34 PM Lidocaine 2% 10 ml Subcutaneous Arron Lizarraga DO 04:47 PM Adenosine 702 ml/hr Intravenous Florina Garner RN 04:46 PM Heparin 2000 units Intravenous Florina Garner RN 05:18 PM Versed 1 mg Intravenous Florina Garner RN 05:22 PM Nitroglycerin 100 mcg Intracoronary Arron Lizarraga DO 05:38 PM Nitroglycerin 100 mcg Intravenous Arron Lizarraga DO 05:42 PM Plavix 300 mg Orally Florina Garner RN ASA Classification: CLASS III- Severe systemic disease (i.e. prior AMI, diabetes with vascular complications, morbid obesity) Wilmar Score Preprocedure Postprocedure Activity 2- Moves 4 extremities sustained head lift Activity Circulation 2- SBP +/= 20 points of pre-anesthetic level Circulation Consciousness 2- Awake and alert oriented x 3 Consciousness O2 Saturation 2- Able to maintain O2 satruation of 92% on room air O2 Saturation Respiratory 2- Able to deep breathe and cough well Respiratory Total Score 10 Total Score Contrast Agent: Isovue Diagnostic Contrast: 180 ml Total Contrast: 180 ml Fluoro Dose: 138 mGy Activated Clotting Time Time Seconds to Clot 04:46 PM 212 05:29 PM 400 Procedure Log Time Note Enter By 04:13 PM Case Start 04:13 PM CathStat 04:19 PM Pt arrived to laborer cheesemaking 2 at 16:19 [email or web address] 04:19 PM Physichonorio paged/called 16:19. [email or web address] 04:19 PM Physichonorio responded and notified patient is ready 16:19 [email or web address] 04:19 PM Physician arrived 16:19 [email or web address] 04:19 PM Meet and greet completed [email or web address] 04:19 PM Sign in performed according to hospital policy. [email or web address] 04:20 PM Procedure start 16:20 [email or web address] 04:21 PM Esau Shirley RT (R) Position: Scrub Time in: 16:20 [email or web address] 04:21 PM Randall Dickinson RN Position: Monitor Time in: 16: [email or web address] 04:21 PM Florina Garner RN Position: Group Reservations Coordinator Time in: 16:21 [email or web address] 04:21 PM Lila Cochran RN Position: Group Reservations Coordinator Time in: 16:21 [email or web address] 04:21 PM Elvira Crain RN Position: Monitor Time in: 16:21 [email or web address] 04:21 PM Patient charges- Angio tray pack, Navilyst 3mm J, Pulse Oximetry and ACIST tubing and transducer [email or web address] 04:21 PM Case Delayed no, inpatient. [email or web address] 04:21 PM Hair removed from procedure site in procedure lab using clippers. Bilateral groin prepped with Chloraprep by Esau Shirley RT (R), then patient was draped. Skin intact. [email or web address] 04:21 PM ASA Class CLASS III- Severe systemic disease (i.e. prior AMI, diabetes with vascular complications, morbid obesity) [email or web address] 04:24 PM Time: 16:24 Oxygen on at 2 L/min per nasal cannula by Florina Garner RN [email or web address] 04:25 PM Time: 16:25 Patient comfortable and pain free: Yes [email or web address] 04:25 PM Time: 16:25LOC: 5 = Fully awake and oriented or at pre-proc level [email or web address] 04:25 PM Clinical Presentation[facility] PM Vitals capture started with the following parameters, Patient=Adult, Interval=5 min, Initial Yhypdlmo=887 mmHg, Deflation Rate=5 mmHg, Cuff placed on Right Arm 04:27 PM HR=86 bpm, BNTI=503/93 mmhg, SpO2=98.0 %, Resp=16 B/min, Comment=nsr 04:28 PM Time: 16:28 Versed 2 mg Intravenous Given by Florina Garner RN [email or web address] 04:32 PM HR=83 bpm, KKWR=066/88 mmhg, SpO2=97.0 %, Resp=18 B/min, Comment=nsr 04:34 PM Time out performed according to hospital policy [email or web address] 04:34 PM Pressure channel 2 zeroed. 04:35 PM Time: 16:34 10 ml Lidocaine 2% to right groin Subcutaneous Given by Arron Lizarraga DO [email or web address] 04:36 PM Micro-Introducer Kit utilized for sheath placement [email or web address] 04:37 PM Access obtained by percutaneous puncture. 6Fr 10cm Terumo [place] sheath placed in right Femoral artery. [id number] [email or web address] 04:37 PM HR=88 bpm, PNYW=022/94 mmhg, SpO2=99.0 %, Resp=26 B/min, Comment=nsr 04:38 PM 6Fr FR 4 catheter inserted over the wire [facility] [email or web address] 04:38 PM Recorded Pressure: LV, HR=87, Condition=Condition 1 (Left Ventricle) LV 116/8/25 04:38 PM Catheter selectively placed in left ventricle [email or web address] 04:38 PM Recorded Pressure: LV, Ao, HR=87, Condition=Condition 1 (Left Ventricle) LV 136/12/28, (Aorta) Ao 139/61/103 04:39 PM Bolus angiogram of left Ventricle complete: 10 ml/sec for a total of 10 mls [email or web address] 04:39 PM catheter repositioned to RCA [email or web address] 04:39 PM RCA angiography performed in multiple views. [email or web address] 04:39 PM Catheter removed [email or web address] 04:40 PM 6Fr JL4 Cordis guide catheter was used to cannulate the PCI vessel successfully. reused? No [email or web address] 04:40 PM Time: 16:25LOC: 4 = Oriented but drowsy [email or web address] 04:40 PM Time: 16:25 Patient comfortable and pain free: Yes [email or web address] 04:41 PM Recorded Pressure: Ao, HR=88, Condition=Condition 1 (Aorta) Ao 127/71/94 04:41 PM LCA angiography performed in multiple views. [email or web address] 04:42 PM HR=87 bpm, BRAD=494/94 mmhg, SpO2=98.0 %, Resp=19 B/min, Comment=nsr 04:43 PM Recorded Pressure: Ao, HR=88, Condition=Condition 1 (Aorta) Ao 136/75/101 04:43 PM Pressure channel 3 zeroed. 04:44 PM Comet Pressure Guidewire advanced to target lesion. [email or web address] 04:44 PM Inflation device was opened. [email or web address] 04:44 PM Pressure channel 2 zeroed. 04:46 PM At 16:46 the ACT was 212 seconds. [email or web address] 04:46 PM Time: 16:46 Heparin 2000 units Intravenous Given by Florina Garner RN [email or web address] 04:46 PM Pressure channel 3 equalized to channel 2. 04:47 PM HR=86 bpm, FDNX=595/93 mmhg, SpO2=98 %, Resp=16 B/min 04:47 PM Time: 16:47 Adenosine 702 ml/hr Intravenous Given by Florina Garner RN [email or web address] 04:48 PM FFR: Value=0.98, Condition=Condition 1, Device=VOLCANO PRIME WIRE 04:48 PM Recorded Pressure: Ao, PV1, FFR=0.98, HR=85, Condition=Condition 1 (Aorta) Ao 125/64/87, (Portal Vein) PV1 115/120/86 04:50 PM Adenosine stopped. [email or web address] 04:50 PM FFR Measurement: 0.98, mid CIRC [email or web address] 04:50 PM Pressure channel 3 equalized to channel 2. 04:52 PM HR=88 bpm, EUEN=872/83 mmhg, SpO2=95.0 %, Resp=23 B/min, Comment=nsr 04:52 PM Flow wire repositioned to 3rd OM. [email or web address] 04:53 PM Recorded Pressure: Ao, PV1, FFR=0.85, HR=80, Condition=Condition 1 (Aorta) Ao 125/63/88, (Portal Vein) PV1 104/107/75 04:53 PM FFR: Value=0.85, Site=Marginal3, Condition=Condition 1, Device=VOLCANO PRIME WIRE 04:53 PM Adenosine restarted. [email or web address] 04:55 PM FFR Measurement: 0.85, OM3 [email or web address] 04:55 PM Time: 16:40 Patient comfortable and pain free: Yes [email or web address] 04:55 PM Time: 16:40LOC: 4 = Oriented but drowsy [email or web address] 04:57 PM HR=87 bpm, ZDWE=201/76 mmhg, SpO2=97.0 %, Resp=20 B/min, Comment=nsr 04:57 PM Pressure channel 3 equalized to channel 2. 05:00 PM Flow Wire removed intact [email or web address] 05:01 PM Pressure channel 3 zeroed. 05:02 PM [place] Prime Wire Prestige advanced to target lesion. [email or web address] 05:02 PM HR=81 bpm, XQDR=037/74 mmhg, SpO2=92.0 %, Resp=22 B/min, Comment=nsr 05:02 PM Pressure channel 2 zeroed. 05:04 PM Pressure channel 3 equalized to channel 2. 05:06 PM FFR: Value=0.92, Condition=Condition 1, Device=VOLCANO PRIME WIRE 05:06 PM Recorded Pressure: Ao, PV1, FFR=0.92, HR=40, Condition=Condition 1 (Aorta) Ao 93/35/53, (Portal Vein) PV1 90/52/49 05:07 PM Adenosine restarted. [email or web address] 05:07 PM HR=82 bpm, QUHL=362/59 mmhg, SpO2=94.0 %, Resp=21 B/min, Comment=nsr 05:08 PM FFR Measurement: 0.92 [email or web address] 05:08 PM Adenosine off. [email or web address] 05:10 PM Adenosine restarted [email or web address] 05:10 PM FFR: Value=0.84, Condition=Condition 1, Device=VOLCANO PRIME WIRE 05:10 PM Recorded Pressure: Ao, PV1, FFR=0.84, HR=92, Condition=Condition 1 (Aorta) Ao 131/59/90, (Portal Vein) PV1 115/116/77 05:10 PM Time: 16:55LOC: 4 = Oriented but drowsy [email or web address] 05:10 PM Time: 16:55 Patient comfortable and pain free: Yes [email or web address] 05:12 PM HR=89 bpm, NMHY=740/64 mmhg, PmE7=194.0 %, Resp=21 B/min, Comment=nsr 05:13 PM adenosine off [email or web address] 05:13 PM [ Start FFR sample ] 05:13 PM FFR Measurement: 0.84 [email or web address] 05:15 PM .014 ChoICE PT Extra Support 300cm guide wire across target lesion- successful. reused? No [email or web address] 05:16 PM Recorded Pressure: Ao, PV1, HR=82, Condition=Condition 1 (Aorta) Ao 142/78/104, (Portal Vein) PV1 -1/-1/-1 05:17 PM HR=84 bpm, SQWD=815/90 mmhg, HiW2=608.0 %, Resp=21 B/min, Comment=nsr 05:18 PM Time: 17:18 Versed 1 mg Intravenous Given by Florina Garner RN [email or web address] 05:21 PM 2.0 mm x 15 mm Emerge Monorail balloon across target lesion- successful. reused? No [email or web address] 05:21 PM PCI Status Urgent [email or web address] 05:21 PM PCI Indication: PCI for high risk Non-STEMI or unstable angina [email or web address] 05:22 PM HR=78 bpm, RBSW=130/91 mmhg, WjC2=138.0 %, Resp=22 B/min, Comment=nsr 05:22 PM Balloon inflated @ 12 sarai for 17 seconds [email or web address] 05:23 PM Time: 17:22 Nitroglycerin 100 mcg Intracoronary Given by Arron Lizarraga DO [email or web address] 05:23 PM Balloon catheter removed intact. [email or web address] 05:26 PM Time: 17:10 Patient comfortable and pain free: Yes [email or web address] 05:26 PM 2.25mm x 20mm Synergy drug-eluting stent across target lesion- successful Lot #[id number] [email or web address] 05:27 PM Stent deployed @ 14 sarai for 17 seconds [email or web address] 05:27 PM HR=78 bpm, FEEB=077/105 mmhg, SpO2=96.0 %, Resp=11 B/min, Comment=nsr 05:27 PM Time: 17:10LOC: 4 = Oriented but drowsy [email or web address] 05:27 PM Stent delivery system removed intact. [email or web address] 05:28 PM Recorded Pressure: Ao, HR=81, Condition=Condition 1 (Aorta) Ao 141/80/105 05:29 PM At 17:29 the ACT was 400+ seconds. [email or web address] 05:29 PM Flow Wire removed intact [email or web address] 05:30 PM Lesion found in Distal Circumflex. Pre Stenosis: 100 Pre WILMAN Flow: [email or web address] 05:31 PM Guide wire removed intact. [email or web address] 05:32 PM .014 ChoICE PT Extra Support 300cm guide wire across target lesion- successful. reused? No [email or web address] 05:32 PM HR=81 bpm, RTCO=748/91 mmhg, SpO2=96.0 %, Resp=21 B/min, Comment=nsr 05:33 PM Recorded Pressure: Ao, HR=82, Condition=Condition 1 (Aorta) Ao 145/82/108 05:34 PM 2.25mm x 20mm Synergy drug-eluting stent across target lesion- successful Lot #[id number] [email or web address] 05:36 PM Stent deployed @ 12 sarai for 18 seconds [email or web address] 05:37 PM Lesion found in 1st Diagonal. Pre Stenosis: 90 Pre WILMAN Flow: 3: Complete and Brisk Flow/Perfusion [email or web address] 05:37 PM Circumflex, Obtuse Marginal, Left Posterior Descending, and Left Posterolateral Coronary Arteries with 100 % stenosis. If graft is supplying this area, 0 % stenosis [email or web address] 05:37 PM HR=81 bpm, ISKX=711/91 mmhg, SpO2=98.0 %, Resp=13 B/min, Comment=nsr 05:37 PM Mid/Distal Left Anterior Descending Coronary Artery and diagonal branches with 90% stenosis. If graft is supplying this area, 0 % stenosis [email or web address] 05:37 PM Stent delivery system removed intact. [email or web address] 05:38 PM Time: 17:38 Nitroglycerin 100 mcg Intravenous Given by Arron Lizarraga DO [email or web address] 05:39 PM Guide catheter removed intact. [email or web address] 05:39 PM Guide wire removed intact. [email or web address] 05:40 PM Bolus angiogram of right Femoral complete: 5 ml/sec for a total of 10 mls [email or web address] 05:41 PM Time: 17:26 Patient comfortable and pain free: Yes [email or web address] 05:42 PM Time: 17:42 Plavix 300 mg Orally Given by Florina Garner RN [email or web address] 05:42 PM HR=76 bpm, ABII=846/79 mmhg, SpO2=97.0 %, Resp=12 B/min, Comment=nsr 05:44 PM Time: 17:27LOC: 4 = Oriented but drowsy [email or web address] 05:45 PM Procedure completed at 17:45 [email or web address] 05:48 PM Sign out completed: Radiation Dose 137.83 mGy Fluoro Time: 5.1 Isovue 370 - 200ml contrast 180 ml given by Arron Lizarraga DO. Complications: NoneCardiac Rehab Consult needed: YesConfirmed administered medications: Yes [email or web address] 05:49 PM Isovue 370 - 200ml,1 Bottle(s) used. [email or web address] 05:49 PM Arterial sheath pulled, Angio-seal closure device used and was Successful [id number] S/N. [email or web address] 05:49 PM Post ECG NSR [email or web address] 05:49 PM Post Blood Pressure 148/79 [email or web address] 05:50 PM 17:49 Post Pulses Bilateral DP & PT 1+ [email or web address] 05:50 PM Information taught Cardiac Cath, PCI, and Angioseal [email or web address] 05:50 PM Education needs Plan of Care, Procedure, and Responsibilities of Patient in Care [email or web address] 05:50 PM Learning barriers :None [email or web address] 05:50 PM Education Methods Verbal [email or web address] 05:50 PM Education evaluation Able to repeat information [email or web address] 05:50 PM Site status No bleeding/hematoma - Rt Groin as reported by Esau Shriley RT (R) at 17:50 [email or web address] 05:50 PM Opsite applied [email or web address] 05:50 PM Report given to celso HERNANDEZ Pt taken to 2N Room #14. 17:50 [email or web address] 05:51 PM Plavix, Effient or Brilinta given Yes [email or web address] 05:51 PM Delay to floor No [email or web address] 05:51 PM Family placed in consult room. [email or web address] 05:51 PM Complications: None [email or web address] 05:51 PM Fluoro Time: 5.1 [email or web address] 05:51 PM Isovue 370 - 200ml contrast 180 ml given by Arron Lizarraga DO. [email or web address] 05:51 PM Radiation Dose 137.83 mGy [email or web address] 05:52 PM Coronary Dominance: Left [email or web address] 05:52 PM Lesion found in Mid RCA. Pre Stenosis: 99 Pre WILMAN Flow: [email or web address] 05:54 PM Lesion found in Mid Circumflex. Pre Stenosis: 60 Pre WILMAN Flow: [email or web address] 05:55 PM Lesion found in 2nd Marginal. Pre Stenosis: 70 Pre WILMAN Flow: [email or web address] 05:55 PM Right Coronary, Right Posterior Descending Arteries with Right Posterolateral and Acute Marginal branches with 100 % stenosis. If graft is supplying this area, 0 % stenosis [email or web address] 05:56 PM Time: 17:41 Patient comfortable and pain free: Yes [email or web address] 05:56 PM Patient out of room: 17:56 [email or web address] Complications Complication None None Hemodynamics Pressures Site Systolic/A Wave Diastolic/V Wave Mean LV 116 8 25 LV 136 12 28 AO 139 61 103 AO 127 71 94 AO 136 75 101 AO 125 64 87 PV1 115 120 86 AO 125 63 88 PV1 104 107 75 AO 93 35 53 PV1 90 52 49 AO 131 59 90 PV1 115 116 77 AO 142 78 104 PV1 -1 -1 -1 AO 141 80 105 AO 145 82 108 Post Procedure Information Blood Pressure: 148/79 mmHg Rhythm: NSR Post procedural instructions were given Closure Device Time Device Success/Fail 02/12/2017 5:55:00 PM Angio-Seal VIP Successful Site Checks Time Location Status Staff Sheath In? Note 05:50 PM Rt Groin No bleeding/hematoma Esau Shirley RT (R) Pulses Time Site Pre-Procedure Post-Procedure Note Bilateral DP & PT 1+ Bilateral radial 2+ 5:49:00 PM Bilateral DP & PT 1+ Updated by Randall Dickinson RN on 02/12/2017 6:07:45 PM electronically signed on 02/12/2017 6:08:28 PM with status of Final
[2017-02-12] MEDS ORDERED: Ondansetron 4 MG/2 ML VIAL IVP PRN (19:06)
[2017-02-12] MEDS ORDERED: Ondansetron 4 MG/2 ML VIAL ONE (19:07)
[2017-02-13] MEDS: 0.9 % Sodium Chloride 1,000 ML IVC SCH (03:57)
[2017-02-13 05:07] LABS: Basophils % 0.2 %; Eosinophils # 0.1 K/mcL (0.0-0.6); Hemoglobin 12.6 g/dL (11.5-15.4); Immature Granulocytes % 0.3 % (0-4); Lymphocytes # 1.6 K/mcL (0.6-4.6); Lymphocytes % 26.4 %; Mean Corpuscular HGB Conc 32.3 g/dL (31.6-35.5); Mean Corpuscular Hemoglobin 30.5 pg (28.0-33.3); Mean Corpuscular Volume 94.4 fL (83.0-100.0); Mean Platelet Volume 10.5 fL (9.4-12.4); Monocytes # 0.8 K/mcL (0.0-1.3); Monocytes % 13.5 %; Neutrophils # 3.4 K/mcL (1.6-8.9); Platelet Count 201 K/mcL (140-400); Red Blood Count 4.13 M/mcL (3.82-4.97); Red Cell Distribution Width 13.2 % (11.5-14.5); Segmented Neutrophils % 57.6 %
[2017-02-13 05:21] LABS: Calcium 9.2 mg/dL (8.6-10.8); Potassium 4.3 mEq/L (3.5-4.5)
[2017-02-13] MEDS: Famotidine 20 MG TABLET PO SCH (05:30)
[2017-02-13] MEDS: Heparin 25,000 UNIT/500 ML D5W 25,000 UNIT/500 ML MLS IVC SCH (05:32)
[2017-02-13] MEDS: Insulin LISPRO 300 UNITS/3 ML VIAL SQ SCH (05:48)
[2017-02-13 07:34] VITALS: BP 122/66
--- NOTE | 2017-02-13 07:36 | Discharge Summary ---
<Patricio Molina - Last Filed: 02/13/17 10:53> Date of Encounter: 02/13/17 Time of Encounter: 07:34 - Discharge Diagnosis (1) NSTEMI (non-ST elevated myocardial infarction) Priority: Primary Status: Acute (2) Acute on chronic systolic CHF (congestive heart failure) Priority: Secondary Status: Acute (3) CKD (chronic kidney disease), stage III Priority: Secondary Status: Chronic (4) 3-vessel CAD Priority: Secondary Status: Acute (5) Hypertension Priority: Secondary Status: Chronic Qualifiers: Hypertension type: essential hypertension Qualified Code(s): I10 - Essential (primary) hypertension (6) Diabetes mellitus type 2 in obese Priority: Secondary Status: Chronic (7) Anxiety Priority: Secondary Status: Chronic (8) COPD (chronic obstructive pulmonary disease) Priority: Secondary Status: Chronic Qualifiers: COPD type: unspecified COPD Qualified Code(s): J44.9 - Chronic obstructive pulmonary disease, unspecified - Discharge Medications Prescriptions: Clopidogrel [Plavix] 75 mg PO DAILY #30 tablet Furosemide [Lasix] 20 mg PO DAILY #30 tablet Home Medications: Alprazolam [Xanax] 0.5 mg PO TID PRN 11/30/14 [History] Amitriptyline [Elavil] 25 - 50 mg PO HS 11/30/14 [History] Aspirin Enteric Coated [Aspirin EC] 81 mg PO QAM 11/30/14 [History] Gabapentin [Neurontin] 600 mg PO QID 11/30/14 [History] Insulin Glargine,Hum.rec.anlog [Lantus Solostar] 62 unit SQ BID 11/30/14 [ History] Insulin LISPRO [Humalog Kwikpen U-200] 20 - 26 unit SQ TIDWM PRN 11/30/14 [ History] Isosorbide MONOnitrate (24 HR) [Imdur] 120 mg PO QAM 11/30/14 [History] Krill/Om-3/Dha/Epa/Phospho/Ast [Krill Oil 1,000 mg Softgel] 1 cap PO BID [History] Multivit-Min/FA/Lycopen/Lutein [Centrum Silver Tablet] 1 tab PO QAM 11/30/14 [ History] Simvastatin [Zocor] 20 mg PO QPM 11/30/14 [History] TraMADol [Ultram] 50 mg PO Q6HR PRN 11/30/14 [History] Metoprolol Succinate 50 mg PO DAILY 02/09/17 [History] Ranitidine HCl [Heartburn Relief] 150 mg PO BID 02/09/17 [History] Ranolazine [Ranexa] 500 mg PO BID 02/09/17 [History] DULoxetine [Cymbalta] 30 mg PO BID 02/10/17 [History] Clopidogrel [Plavix] 75 mg PO DAILY #30 tablet 02/13/17 [Rx] Furosemide [Lasix] 20 mg PO DAILY #30 tablet 02/13/17 [Rx] Allergies/Adverse Reactions: 3 Allergy/AdvReac Type Severity Reaction Status Date / Time Penicillins Allergy Severe Rash Verified 02/09/17 08:29 Procedures/tests Complete & Pending: Procedures Performed prior 72 hours Category Date Time Status CL Cardiac Catheterization [CL] Routine Multiskill Operator 02/12/17 08:52 Completed Date of admission: 02/10/17 08:24 Primary care physician: Merlene Lazo CNP Consults: 02/12/17 08:31 Consult to Occupational Therapy [CONS] Routine Comment: Evaluate, develop and implement POC Reason for Consult: recent fall, lives with at home Consult to Physical Therapy [CONS] Routine Comment: Evaluate, develop and implement POC Reason for Consult: recent fall, lives with at home Discharging clinician: Patricio Molina Anticipated date of discharge: 02/13/17 - Patient Status Disposition: Home, Self-Care Condition: Fair Functional capacity at discharge: independent ambulation Overall status at discharge: patient is progressing back to baseline - Discharge Instructions Instructions: Furosemide (By mouth), Clopidogrel (By mouth), Myocardial Infarction (DC), Heart Failure (DC) Follow Up With: Merlene Lazo CNP [Primary Care Provider] - (SENT WEB REQUEST ON 02-12-17 @ [phone]) Pepe Reese DO [Partnered Physician] - 02/14/17 8:30 am Additional Instructions: RISK FACTORS: STOP SMOKING: If you smoke, STOP. Smoking or tobacco use significantly increases your risk of heart disease because nicotine causes the arteries to narrow or constrict. It also causes fats to stick to the artery. Your chances of having a heart attack are greatly increased if you continue to smoke. For more information, call the education line for smoking cessation 2-545-QSYIXRD EAT A LOW FAT/CHOLESTEROL/SODIUM DIET: This diet may help reduce your chances of having a heart attack. LIFTING: Avoid lifting anything more than 10 pounds for 5-7 days Prior to straining, laughing, sneezing and/or coughing, apply manual pressure directly over insertion site. ACTIVITY: You may walk or climb stairs as tolerated You can resume sexual activity as tolerated In general, you are encouraged to engage in a minimum of 30 minutes or more of moderate intensity physical activity, such as brisk walking, daily or at least 3 -4 times weekly BATHING Do not submerge the site into water (bath tub, hot tub, swimming pool) for 1 week. This can be a source for infection into the blood stream. You may shower after 24 hours SITE CARE: After 24 hours, you may remove the dressing and leave the site open to air. Keep the site clean and dry. Clean gently and pat dry. You can expect bruising and tenderness that gradually resolve within a week or two. Return to work as instructed per your physician Resume driving as instructed per physician Keep all scheduled follow up appointments Resume medications as instructed IMPORTANT: If prescribed a Platelet Aggregation Inhibitor such as, Plavix, Brilinta or Effient: Duration of therapy is minimum one year These medications are often used in combination with Aspirin in prevention of future heart attacks Never discontinue unless consult with your Consumer Insight Manager STROKE (CVA) Risk factors for a stroke are: Age, cigarette smoking, diabetes, excessive alcohol consumption, family history, high blood pressure, overweight, physical inactivity, prior stroke, heart attack, diagnosis of carotid artery stenosis or other artery disease. Warning signs: Sudden numbness or weakness of the face, arm or leg; especially on one side of the body, sudden confusion, trouble speaking or understanding, sudden trouble seeing in one or both eyes, sudden trouble walking, dizziness, loss of balance or coordination, sudden severe headache with no cause. Call 911 or go to the Emergency Room. CONGESTIVE HEART FAILURE: If you have been diagnosed with Congestive Heart Failure (CHF) and your symptoms return, make an appointment with your physician Weigh yourself daily. Notify your physician if you have a weight gain of two or more pounds in one day or five or more pounds in one week. If you experience any difficulty breathing, please call 911 BLEEDING: Although the risk of bleeding is minimal, it can happen. If you have any bleeding from the site, apply firm pressure above the puncture site for 10-15 minutes. If the bleeding does not stop, continue manual pressure and call 911 Contact your physician if: You develop a fever greater than 101 degrees Fahrenheit Your site becomes reddened or has any drainage You have an increase in pain or burning at the site or if a large knot forms at the site. If you experience chest pain, shortness of breath, dizziness, or extreme tiredness, stop the activity and rest. Please notify your physicians office if you experience any of these symptoms and they are not relieved by rest please call 911!Please follow up with cardiology within 1 week. Please follow up with your PCP within 1-2 weeks. If chest pain returns, develop worsening shortness of breath or bleeding, please return to ED. Continue your home medications in addition to newly prescribed Lasix and Plavix. - Diet and Activity Activity: increase activity as tolerated Diet: low fat, low cholesterol Interval History: Pt seen and examined. She states her chest discomfort is minimal and she suspects it may be due to her reflux. She has no shortness of breath at this time and states it has dramatically improved while she has been here. No issues with fevers, chills, vomiting, or diarrhea. She did have some nausea right after her cath yesterday but has since been fine. Hospital course: Ms. Alcantar is a 71 year old female who presented to the ED with abrupt shortness of breath. She just had an outpatient-scheduled LHC the day prior to admission which showed severe 3 vessel disease and EF of 20% and medical management was recommended at the time. CXR demonstrated pulmonary edema and she was started on diuresis. She also had increasing troponins and cardiology was consulted and reassessed her recent LHC and recommended heparin ggt and re-cathing her. Her kidney function was close to her baseline in setting of CKD and she did receive both fluids and mucomyst around the LHC which was performed on 02/12. She did get LO to distal circ and 1st diagonal and transferred back to in stable condition. Both her vitals and labs were stable and she is ready to go home today. She did not qualify for oxygen and feels safe to go home. She is able ambulate on her own and has not had issues with falls for last 2 years. - Time Spent with Patient Total time spent providing and/or coordinating discharge services: - Constitutional Vitals: Temp Pulse Resp BP Pulse Ox 98.0 F 93 16 122/66 91 02/13/17 07:29 02/13/17 07:29 02/13/17 07:29 02/13/17 07:29 02/13/17 07:29 General appearance: Present: cooperative, pleasant, no acute distress, obese, answers questions appropriately - Head Head exam: Present: atraumatic, normocephalic - Eye Eye exam: Present: PERRL, conjuntiva pink, sclera anicteric - Neck Neck exam general surgery: Present: supple, trachea midline. Absent: lymphadenopathy - Respiratory Respiratory exam: Present: decreased breath sounds. Absent: accessory muscle use, rales, rhonchi, wheezes - Cardiovascular Cardiovascular exam: Present: RRR, +S1, +S2. Absent: diastolic murmur, gallop, rubs, systolic murmur - GI/Abdominal GI/Abdominal exam: Present: normal bowel sounds, soft, no peritoneal signs. Absent: distended, tenderness - Extremities Exam Extremities exam: Present: warm, radial pulses palpable and symmetrical. Absent : calf tenderness, cyanotic, pedal edema - Neurological Exam Neurological exam: Present: alert, no focal deficits. Absent: pronater drift, facial droop, speech deficit - Skin Skin exam: Present: dry, intact <Thallapaneni,Rambabu - Last Filed: 02/13/17 18:49> Date of Encounter: 02/13/17 Procedures/tests Complete & Pending: Procedures Performed prior 72 hours Category Date Time Status CL Cardiac Catheterization [CL] Routine Multiskill Operator 02/12/17 08:52 Completed ECG 12 lead ECG [ECG] Routine Y 02/12/17 18:44 Completed Date of admission: 02/10/17 08:24 Primary care physician: Merlene Lazo CNP Consults: 02/12/17 08:31 Consult to Occupational Therapy [CONS] Routine Comment: Evaluate, develop and implement POC Reason for Consult: recent fall, lives with at home Consult to Physical Therapy [CONS] Routine Comment: Evaluate, develop and implement POC Reason for Consult: recent fall, lives with at home 02/13/17 07:46 Consult to Cardiac Rehabilitation-Phase1 [CONS] Routine Comment: Reason for Consult: Chest pain Call Completed: No Hospital course: Ms. Alcantar is a 71 year old female - Time Spent with Patient Total time spent providing and/or coordinating discharge services: - Constitutional Vitals: Temp Pulse Resp BP Pulse Ox 98.0 F 93 16 122/66 94 02/13/17 07:29 02/13/17 07:29 02/13/17 07:29 02/13/17 07:29 02/13/17 10:53 - Attending Attestation I examined this patient and my medical decision-making was reviewed with the Resident Physician. I agree with the documented findings, disposition and treatment plan as described except to the extent set forth below. Reviewed pt's discharge instructions and medications. Agree with resident discharge plan. Asked the pt to f/u with Cardiology as an out pt. Also recommend to continue taking ASA and Plavix. Also recommend to take low dose lasix for her systolic CHF.
[2017-02-13] MEDS ORDERED: Insulin LISPRO 300 UNITS/3 ML VIAL SQ SCH (07:45)
[2017-02-13] MEDS: Aspirin Enteric Coated 81 MG Tablet PO SCH (07:56)
[2017-02-13] MEDS: Ranolazine 500 MG TAB.ER.12H PO SCH (07:56)
[2017-02-13] MEDS: Isosorbide MONOnitrate (24 HR) 60 MG TAB.ER.24H PO SCH (07:57)
[2017-02-13] MEDS: Metoprolol XL (24 HR) Succ 50 MG TAB.ER.24H PO SCH (07:57)
[2017-02-13] MEDS ORDERED: Furosemide 20 MG TABLET PO SCH (09:00)
[2017-02-13] MEDS: Insulin DETEMIR 100 UNIT/ML X5UNITS SQ SCH (09:47)
[2017-02-13] MEDS: *HR* Acetylcysteine 20% 600 MG/3 ML ORAL SYRINGE PO SCH (10:44)
--- NOTE | 2017-02-13 14:25 | Cardiology Progress Note ---
Date of Encounter: 02/13/17 Time of Encounter: 14:22 Assessment and Plan (1) Elevated troponin Status: Acute Troponin elevation at 0.06, 0.43, 0.49 concerning for NSTEMI likely type II secondary to pulmonary edema and hypoxia, known 3 vessel CAD. She did have left shoulder pain. Continued anginal symptoms and new low EF. [facility] with possible PCI recommended. Recent [facility] 02/09/17-20% stenosis in the LMCA. Distal LAD and 1st DX is small in size. 60% stenosis in the Mid LAD- FFR 0.83. 70% stenosis in the Distal LAD- small vessel 70% stenosis in the 1st Diagonal- small vessel. 50% stenosis in the Mid Circumflex- FFR 0.96. 60% stenosis in the 1st Marginal. 90% stenosis in the Left PDA- small vessel. Right Coronary Artery is small and non-dominant. 95 % stenosis in the Mid RCA. EF 25%. No intervention. Medical management recommended. TTE 01/24/17-Severe LV systolic dysfunction, LVEF 20%. There is global LV hypokinesis. Mild concentric left ventricular hypertrophy. Elevated LV filling pressure. Normal right ventricular size and function. No significant valvular dysfunction. Unable to estimate RVSP due to inadequate TR jet. S/p PCI to the dCX and 1st dx yesterday. Denies recurrent shoulder pain. [facility] 02/12/17- 90% stenosis in the 1st Diagonal- s/p LO. 60% stenosis in the Mid Circumflex. 100% stenosis in the Distal Circumflex. -s/p PTCA and LO. 70% stenosis in the 2nd Marginal. 99% stenosis in the Mid RCA. Vessel is small and non-dominant. Kidney function improved. Importance of DAPT with asa and plavix for minimum of one year uninterrupted reviewed with patient and family. They voiced understanding. Healthy heart diet and exercise reviewed. Cardiac rehab discussed. Continue statin and bb therapy.No lifting over Activity restrictions reviewed. 10 lbs for one week. No driving for a week. No tub baths for one week. She can take showers. Out-pt f/u will be coordinated by [facility]. Cardiology signing off. Call with questions. (2) Acute on chronic systolic CHF (congestive heart failure) Status: Acute EF recently found to be 20% with severe global dysfunction. EF 25% on [facility] . Developed pulmonary edema. IV lasix converted to oral. Strict I&O. Low sodium diet. CHF education reviewed. Continue toprol XL. No keanu inhibitor at this time Known CKD s/p [facility] yesterday. If kidney function remains stable will consider adding in future. Will need maintenance lasix at discharge. (3) 3-vessel coronary artery disease Status: Acute Asa, statin, bb plavix Discussion w patient/family: The assessment and plan as outlined above was discussed with the patient and/or family members who expressed understanding and agreement. All questions were answered. Thank you for involving us in the care of your patient. Please call with any questions. Subjective Principal diagnosis: Dyspnea, pulmonary edema Interval history: Reports she is feeling better. Denies left shoulder pain. Denies SOB. Objective Vital Signs, Last 4 Hours Pulse Ox 02/13/17 10:53 94 General: Conversant, No Apparent Distress HEENT: Atraumatic, Normocephaly, Mucus Membranes Moist Neck: No JVD, Normal carotid pulses Cardiac: Reg Rate and Rhythm, Normal S1 and S2, No Murmur Lungs: Normal Breath Sounds, No Wheeze, Rales, Rhonchi Neuro: Alert and responsive, No focal deficits noted Abdomen: Soft, Non-Tender Skin: No rashes noted on visualized skin, Other (Right groin soft. Dressing removed. No hematoma,) Musculoskeletal: No Chest Wall Tenderness Extremities: No Clubbing, No Cyanosis, No Edema, Normal Pulses Results 02/13/17 04:33 02/13/17 04:33 Lab Results 02/13/17 02/13/17 02/13/17 04:33 04:33 04:33 WBC 5.9 Hgb 12.6 Hct 39.0 Plt Count 201 APTT 27.9 D Sodium 140 Potassium 4.3 Chloride 105 Carbon Dioxide 27 BUN 29 H Creatinine 1.29 H Glucose 66 L Calcium 9.2 - Imaging and Cardiology Echo: report reviewed Cardiac cath: report reviewed Consult Discharge Plan - Plan Instructions: Furosemide (By mouth), Clopidogrel (By mouth), Myocardial Infarction (DC), Heart Failure (DC) Additional Instructions: RISK FACTORS: STOP SMOKING: If you smoke, STOP. Smoking or tobacco use significantly increases your risk of heart disease because nicotine causes the arteries to narrow or constrict. It also causes fats to stick to the artery. Your chances of having a heart attack are greatly increased if you continue to smoke. For more information, call the education line for smoking cessation 9-473-XJMJOVJ EAT A LOW FAT/CHOLESTEROL/SODIUM DIET: This diet may help reduce your chances of having a heart attack. LIFTING: Avoid lifting anything more than 10 pounds for 5-7 days Prior to straining, laughing, sneezing and/or coughing, apply manual pressure directly over insertion site. ACTIVITY: You may walk or climb stairs as tolerated You can resume sexual activity as tolerated In general, you are encouraged to engage in a minimum of 30 minutes or more of moderate intensity physical activity, such as brisk walking, daily or at least 3 -4 times weekly BATHING Do not submerge the site into water (bath tub, hot tub, swimming pool) for 1 week. This can be a source for infection into the blood stream. You may shower after 24 hours SITE CARE: After 24 hours, you may remove the dressing and leave the site open to air. Keep the site clean and dry. Clean gently and pat dry. You can expect bruising and tenderness that gradually resolve within a week or two. Return to work as instructed per your physician Resume driving as instructed per physician Keep all scheduled follow up appointments Resume medications as instructed IMPORTANT: If prescribed a Platelet Aggregation Inhibitor such as, Plavix, Brilinta or Effient: Duration of therapy is minimum one year These medications are often used in combination with Aspirin in prevention of future heart attacks Never discontinue unless consult with your Supervisor Rod Placing STROKE (CVA) Risk factors for a stroke are: Age, cigarette smoking, diabetes, excessive alcohol consumption, family history, high blood pressure, overweight, physical inactivity, prior stroke, heart attack, diagnosis of carotid artery stenosis or other artery disease. Warning signs: Sudden numbness or weakness of the face, arm or leg; especially on one side of the body, sudden confusion, trouble speaking or understanding, sudden trouble seeing in one or both eyes, sudden trouble walking, dizziness, loss of balance or coordination, sudden severe headache with no cause. Call 911 or go to the Emergency Room. CONGESTIVE HEART FAILURE: If you have been diagnosed with Congestive Heart Failure (CHF) and your symptoms return, make an appointment with your physician Weigh yourself daily. Notify your physician if you have a weight gain of two or more pounds in one day or five or more pounds in one week. If you experience any difficulty breathing, please call 911 BLEEDING: Although the risk of bleeding is minimal, it can happen. If you have any bleeding from the site, apply firm pressure above the puncture site for 10-15 minutes. If the bleeding does not stop, continue manual pressure and call 911 Contact your physician if: You develop a fever greater than 101 degrees Fahrenheit Your site becomes reddened or has any drainage You have an increase in pain or burning at the site or if a large knot forms at the site. If you experience chest pain, shortness of breath, dizziness, or extreme tiredness, stop the activity and rest. Please notify your physicians office if you experience any of these symptoms and they are not relieved by rest please call 911!Please follow up with cardiology within 1 week. Please follow up with your PCP within 1-2 weeks. If chest pain returns, develop worsening shortness of breath or bleeding, please return to ED. Continue your home medications in addition to newly prescribed Lasix and Plavix. Referrals: Merlene Lazo CNP [Primary Care Provider] - (SENT WEB REQUEST ON 02-12-17 @ [phone]) Pepe Reese DO [Partnered Physician] - 02/14/17 8:30 am Prescriptions: Clopidogrel [Plavix] 75 mg PO DAILY #30 tablet Furosemide [Lasix] 20 mg PO DAILY #30 tablet
--- NOTE | 2017-02-13 17:24 | Electrocardiograph Report ---
[address] [address] Test Date: 2017-02-12 Pat Name: Megha Alcantar Department: 110 Room: 2N14 Gender: F Continuous Wave Operator: JOSE LUIS : 1945 Requested By: Thom Gannon Order Number: [id number] Reading MD: Katarzyna Lawson Measurements Intervals [place] Rate: 81 P: 64 GA: 186 QRS: -42 QRSD: 165 T: 85 QT: 462 QTc: 500 Interpretive Statements SINUS RHYTHM MARKED LEFT AXIS DEVIATION LEFT BUNDLE BRANCH BLOCK Electronically Signed On 02-13-2017 17:22:43 EDT by Katarzyna Lawson
[2017-02-14 20:00] LABS: CK-BB (CK isoenzymes) 0 % (0-0); CK-MB (CK isoenzymes) 0 % (0-4); CK-MM (CK-isoenzymes) 100 % (96-100)
[2017-02-14 20:00] LABS: CK-BB (CK isoenzymes) 0 % (0-0); CK-MB (CK isoenzymes) 0 % (0-4); CK-MM (CK-isoenzymes) 100 % (96-100)
[2017-02-15 07:53] LABS: CK Total (Ck Isoenzymes) 122 U/L (20-180)
[2017-02-15 07:53] LABS: CK Total (Ck Isoenzymes) 107 U/L (20-180)
== END 2017-02-13 12:54 | disposition home or self-care (01) | DRG 246 ==
LOC: EMEROO 04:47 → 2NNU 04:47 → SUATTDRO 08:24
PROVIDERS: ADMIT Hospitalist; ATTEND Family Medicine

== ENCOUNTER 2017-07-06 16:21 | Inpatient (IN) ==
[2017-07-06] MEDS ORDERED: Aspirin 81 MG TAB.CHEW PO ONE (16:50)
[2017-07-06 17:35] LABS: Basophils % 0.2 %; Eosinophils # 0.2 K/mcL (0.0-0.6); Eosinophils % 3.1 %; Hematocrit 39.8 % (35.3-44.9); Immature Granulocytes % 0.2 % (0-4); Lymphocytes # 1.2 K/mcL (0.6-4.6); Lymphocytes % 22.8 %; Mean Corpuscular HGB Conc 32.7 g/dL (31.6-35.5); Mean Corpuscular Hemoglobin 30.5 pg (28.0-33.3); Mean Corpuscular Volume 93.4 fL (83.0-100.0); Mean Platelet Volume 10.1 fL (9.4-12.4); Monocytes # 0.7 K/mcL (0.0-1.3); Monocytes % 13.4 %; Neutrophils # 3.2 K/mcL (1.6-8.9); Platelet Count 210 K/mcL (140-400); Red Blood Count 4.26 M/mcL (3.82-4.97); Red Cell Distribution Width 13.5 % (11.5-14.5); Segmented Neutrophils % 60.3 %
--- NOTE | 2017-07-06 17:38 | Emergency Department Note ---
Disposition Clinical Impression: NSTEMI (non-ST elevated myocardial infarction), KODY (acute kidney injury) Disposition: Admitted As Inpatient Condition: Good Referrals: Merlene Lazo CNP [Primary Care Provider] - Forms: ED Satisfaction Letter Time of Disposition: 20:13 General Adult HPI - General Chief complaint: ED Chest Pain Stated complaint: chest pressure Source: patient Limitations: no limitations Nursing Notes Reviewed: Yes Vital Signs Reviewed: Yes - History of Present Illness HPI Narrative: 72-year-old female with significant past medical history of diabetes and coronary artery disease with most recent stent placement in January and needing a pacemaker and defibrillator scheduled on Sunday presenting to the emergency department with chief complaint of weakness and chest pressure. Patient states today she was at her cardiac rehabilitation clinic when she started feeling weak and having left sided chest pain. She denies nausea but does disclose diaphoresis with these symptoms. Patient states she has not tried any medications for this at home. Patient does disclose chest pain at this time. Pain Scale: 6 - Related Data Home Medications Medication Instructions Recorded Confirmed Alprazolam [Xanax] 0.5 mg PO TID PRN 11/30/14 07/06/17 Amitriptyline [Elavil] 25 - 50 mg PO HS 11/30/14 07/06/17 Aspirin Enteric Coated [Aspirin EC] 81 mg PO QAM 11/30/14 07/06/17 Gabapentin [Neurontin] 600 mg PO QID 11/30/14 07/06/17 Insulin LISPRO [Humalog Kwikpen 30 unit SQ TIDWM 11/30/14 07/06/17 U-200] Isosorbide MONOnitrate (24 HR) 120 mg PO QAM 11/30/14 07/06/17 [Imdur] Krill/Om-3/Dha/Epa/Phospho/Ast 500 mg PO DAILY 11/30/14 07/06/17 [Krill Oil 1,000 mg Softgel] Multivit-Min/FA/Lycopen/Lutein 1 tab PO QAM 11/30/14 07/06/17 [Centrum Silver Tablet] TraMADol [Ultram] 50 mg PO Q6HR PRN 11/30/14 07/06/17 Metoprolol Succinate 50 mg PO DAILY 02/09/17 07/06/17 Ranitidine HCl [Heartburn Relief] 150 mg PO BID 02/09/17 07/06/17 Ranolazine [Ranexa] 500 mg PO BID 02/09/17 07/06/17 DULoxetine [Cymbalta] 30 mg PO BID 02/10/17 07/06/17 Sennosides/Docusate Sodium [Stool 1 each PO DAILY PRN 04/19/17 07/06/17 Softener Tablet] Vit C/E/Zn/Coppr/Lutein/Zeaxan 1 cap PO DAILY 04/19/17 07/06/17 [Preservision Areds 2 Softgel] Insulin DETEMIR [Levemir Flextouch] 60 unit SQ BID 07/06/17 07/06/17 Simvastatin [Zocor] 20 mg PO HS 07/06/17 07/06/17 Previous Rx's Medication Instructions Recorded Clopidogrel [Plavix] 75 mg PO DAILY #30 tablet 02/13/17 Furosemide [Lasix] 20 mg PO DAILY #30 tablet 02/13/17 Allergies Allergy/AdvReac Type Severity Reaction Status Date / Time Penicillins Allergy Severe Anaphylaxis Verified 04/19/17 13:34 All systems ED: reviewed and negative except as stated. Cardiovascular: Reports: chest pain Neurological: Reports: weakness, other (dizziness) Past Medical History - Past Medical History Attestation: Yes The following information was validated with the patient. Medical history: Reports: arthritis, atrial fibrillation, cancer, cardiomyopathy , cirrhosis, COPD, coronary artery disease, diabetes, GERD, hyperlipidemia, hypertension, malignancy, myocardial infarction Surgical history: Reports: breast surgery, cancer surgery, cholecystectomy, hysterectomy, knee replacement Psychiatric history: Reports: anxiety, depression - Social History Smoking Status: Never smoker Smokeless Tobacco Status: No Alcohol use: Reports: none Drug use: Reports: none Physical Exam - General Limitations: no limitations General appearance: alert, in no apparent distress - Head Head exam: atraumatic, normocephalic, normal inspection - Eye Eye exam: Present: normal appearance. Absent: scleral icterus, conjunctival injection - ENT ENT exam: mucous membranes dry - Neck Neck exam: Present: normal inspection, full ROM. Absent: tenderness, meningismus - Chest Chest inspection: Present: normal inspection, symmetric chest wall rise. Absent : tenderness, rash - Respiratory Respiratory exam: Present: normal lung sounds bilaterally. Absent: respiratory distress, wheezes - Cardiovascular Cardiovascular exam: Present: normal rhythm, tachycardia, normal heart sounds - Abdominal Exam Abdominal exam: Present: soft, Non-Tender. Absent: distention, guarding, rebound - Extremities Exam Extremities exam: Present: normal inspection, full ROM - Neurological Exam Neurological exam: Present: alert, oriented X3 - Psychiatric Psychiatric exam: Present: normal affect, normal mood - Skin Skin exam: Present: warm, intact Course Course Narrative: 72-year-old female presenting to the emergency department for chest pain and weakness. Patient had stents placed in January. Patient saw having chest pain at this time. We will perform chest pain workup including chest x-ray, EKG and troponin. We will also provide the patient with aspirin and nitroglycerin. Patient is alert and oriented 3 in the room. Mildly tachycardic in the low 100s but otherwise vital signs stable. Disposition most likely admission but pending results. Patient agrees with this plan. - Reevaluation(s) Reevaluation #1: Patient's troponin elevated at 0.16. Patient chest pain-free at this time. All other labs mostly unchanged. Acute bump in creatinine but mostly unchanged. We will admit the patient at this time for NSTEMI. Patient is alert and oriented 3 in the room with stable vital signs. We will admit the patient at this time. I spoke with the hospitalist on-call who agrees to accept the patient. We will start the patient on a heparin drip at this time. Vital Signs Temperature 98.6 F 07/06/17 16:26 Pulse Rate 107 07/06/17 16:26 Respiratory Rate 18 07/06/17 16:26 Blood Pressure 136/75 07/06/17 16:26 O2 Sat by Pulse Oximetry 95 07/06/17 16:26 Temperature 98.6 F 07/06/17 16:26 Pulse Rate 107 07/06/17 16:26 Respiratory Rate 18 07/06/17 16:26 Blood Pressure 136/75 07/06/17 16:26 O2 Sat by Pulse Oximetry 95 07/06/17 16:26 Oxygen Delivery Oxygen Delivery Room Air Medical Decision Making - Lab Data Result diagrams: 07/06/17 17:12 07/06/17 17:12 Lab Results 07/06/17 07/06/17 07/06/17 Range/Units 17:12 17:12 17:12 WBC 5.2 (4.3-11.1) K/mcL RBC 4.26 (3.82-4.97) M/mcL Hgb 13.0 (11.5-15.4) g/dL Hct 39.8 (35.3-44.9) % MCV 93.4 (83.0-100.0) fL MCH 30.5 (28.0-33.3) pg MCHC 32.7 (31.6-35.5) g/dL RDW 13.5 (11.5-14.5) % Plt Count 210 (140-400) K/mcL MPV 10.1 (9.4-12.4) fL Immature Gran % 0.2 (0-4) % Seg Neutrophils % 60.3 % Lymphocytes % 22.8 % Monocytes % 13.4 % Eosinophils % 3.1 % Basophils % 0.2 % Neutrophils # 3.2 (1.6-8.9) K/mcL Lymphocytes # 1.2 (0.6-4.6) K/mcL Monocytes # 0.7 (0.0-1.3) K/mcL Eosinophils # 0.2 (0.0-0.6) K/mcL Basophils # 0.0 (0.0-0.2) K/mcL PT 11.5 (9.4-12.1) Seconds INR 1.1 APTT (26.0-36.0) Seconds Sodium 138 (136-145) mEq/L Potassium 4.4 (3.5-5.1) mEq/L Chloride 103 (98-107) mEq/L Carbon Dioxide 28 (23-29) mEq/L BUN 21 (8-23) mg/dL Creatinine 1.32 H (0.60-1.20) mg/dL Est GFR ( Amer) 48 L (> 60) Est GFR (Non-Af Amer) 40 L (> 60) BUN/Creatinine Ratio 16 (6-26) Glucose 174 H (70-105) mg/dL Calculated Osmolality 293 (280-300) Calcium 10.3 (8.6-10.3) mg/dL Troponin I 0.16 H* (< 0.04) ng/mL 07/06/17 Range/Units 19:33 WBC (4.3-11.1) K/mcL RBC (3.82-4.97) M/mcL Hgb (11.5-15.4) g/dL Hct (35.3-44.9) % MCV (83.0-100.0) fL MCH (28.0-33.3) pg MCHC (31.6-35.5) g/dL RDW (11.5-14.5) % Plt Count (140-400) K/mcL MPV (9.4-12.4) fL Immature Gran % (0-4) % Seg Neutrophils % % Lymphocytes % % Monocytes % % Eosinophils % % Basophils % % Neutrophils # (1.6-8.9) K/mcL Lymphocytes # (0.6-4.6) K/mcL Monocytes # (0.0-1.3) K/mcL Eosinophils # (0.0-0.6) K/mcL Basophils # (0.0-0.2) K/mcL PT (9.4-12.1) Seconds INR APTT 29.0 (26.0-36.0) Seconds Sodium (136-145) mEq/L Potassium (3.5-5.1) mEq/L Chloride (98-107) mEq/L Carbon Dioxide (23-29) mEq/L BUN (8-23) mg/dL Creatinine (0.60-1.20) mg/dL Est GFR ( Amer) (> 60) Est GFR (Non-Af Amer) (> 60) BUN/Creatinine Ratio (6-26) Glucose (70-105) mg/dL Calculated Osmolality (280-300) Calcium (8.6-10.3) mg/dL Troponin I (< 0.04) ng/mL - EKG Data EKG #1 EKG attestation: Yes I reviewed and interpreted this EKG. EKG results narrative: Sinus tachycardia. Left axis deviation. Left bundle branch block. 102 bpm. NV interval 172, QRS 161, QTc 456. No signs of acute ST segment elevation or ischemia. Compared to previous EKG completed on 02/12/2017 no significant changes noted
[2017-07-06 17:40] LABS: INR 1.1; Prothrombin Time 11.5 Seconds (9.4-12.1)
[2017-07-06 17:56] LABS: Calcium 10.3 mg/dL (8.6-10.3); Potassium 4.4 mEq/L (3.5-5.1)
--- NOTE | 2017-07-06 18:07 | Emergency Department Note ---
Disposition Clinical Impression: Chest pain Qualifiers: Chest pain type: other chest pain Qualified Code(s): R07.89 - Other chest pain ; R07.8 - Other chest pain Disposition: Still a Patient Condition: Fair Referrals: Merlene Lazo CNP [Primary Care Provider] - Forms: ED Satisfaction Letter Time of Disposition: 18:07 General Adult HPI - General Chief complaint: ED Chest Pain Stated complaint: chest pressure Source: patient Limitations: no limitations - History of Present Illness Pain Scale: 6 - Related Data Home Medications Medication Instructions Recorded Confirmed Alprazolam [Xanax] 0.5 mg PO TID PRN 11/30/14 04/19/17 Amitriptyline [Elavil] 25 - 50 mg PO HS 11/30/14 04/19/17 Aspirin Enteric Coated [Aspirin EC] 81 mg PO QAM 11/30/14 04/19/17 Gabapentin [Neurontin] 600 mg PO QID 11/30/14 04/19/17 Insulin Glargine,Hum.rec.anlog 62 unit SQ BID 11/30/14 04/19/17 [Lantus Solostar] Insulin LISPRO [Humalog Kwikpen 25 unit SQ TIDWM PRN 11/30/14 04/19/17 U-200] Isosorbide MONOnitrate (24 HR) 120 mg PO QAM 11/30/14 04/19/17 [Imdur] Krill/Om-3/Dha/Epa/Phospho/Ast 500 mg PO DAILY 11/30/14 04/19/17 [Krill Oil 1,000 mg Softgel] Multivit-Min/FA/Lycopen/Lutein 1 tab PO QAM 11/30/14 04/19/17 [Centrum Silver Tablet] Simvastatin [Zocor] 40 mg PO QPM 11/30/14 04/19/17 TraMADol [Ultram] 50 mg PO Q6HR PRN 11/30/14 04/19/17 Metoprolol Succinate 50 mg PO DAILY 02/09/17 04/19/17 Ranitidine HCl [Heartburn Relief] 150 mg PO BID 02/09/17 04/19/17 Ranolazine [Ranexa] 500 mg PO BID 02/09/17 04/19/17 DULoxetine [Cymbalta] 30 mg PO BID 02/10/17 04/19/17 Sennosides/Docusate Sodium [Stool 1 each PO DAILY 04/19/17 04/19/17 Softener Tablet] Vit C/E/Zn/Coppr/Lutein/Zeaxan 1 cap PO DAILY 04/19/17 04/19/17 [Preservision Areds 2 Softgel] Previous Rx's Medication Instructions Recorded Clopidogrel [Plavix] 75 mg PO DAILY #30 tablet 02/13/17 Furosemide [Lasix] 20 mg PO DAILY #30 tablet 02/13/17 Allergies Allergy/AdvReac Type Severity Reaction Status Date / Time Penicillins Allergy Severe Anaphylaxis Verified 04/19/17 13:34 Past Medical History - Past Medical History Medical history: Reports: arthritis, atrial fibrillation, cancer, cardiomyopathy , cirrhosis, COPD, coronary artery disease, diabetes, GERD, hyperlipidemia, hypertension, malignancy, myocardial infarction Surgical history: Reports: breast surgery, cancer surgery, cholecystectomy, hysterectomy, knee replacement Psychiatric history: Reports: anxiety, depression - Social History Smoking Status: Never smoker Smokeless Tobacco Status: No Alcohol use: Reports: none Drug use: Reports: none Physical Exam - General Limitations: no limitations General appearance: alert Course - Reevaluation(s) Reevaluation #1: Attestation note I examined this patient and my medical decision-making was reviewed with the CORE MEASURES ABSTRACTOR/PA/Advanced Practice Nurse/Resident Physician. I agree with the documented findings, disposition and treatment plan as described except to the extent set forth below. ED attending: Patient's emergency medicine resident Dr. VARUN SHAFER. Please see copy of this note for H&P evaluation and management and ED disposition. We both had independent [id number] time in contact with this patient. Briefly: 72-year-old female history of multiple stents coronary artery disease presents with shortness of breath chest discomfort. EKG shows occipital CT changes but no acute ischemic changes. Patient getting oxygen aspirin, awaiting troponin and chest x-ray with admission anticipated. Providing 45 minutes critical care service for this patient. Time: 18:03 Vital Signs Temperature 98.6 F 07/06/17 16:26 Pulse Rate 107 07/06/17 16:26 Respiratory Rate 18 07/06/17 16:26 Blood Pressure 136/75 07/06/17 16:26 O2 Sat by Pulse Oximetry 95 07/06/17 16:26 Temperature 98.6 F 07/06/17 16:26 Pulse Rate 107 07/06/17 16:26 Respiratory Rate 18 07/06/17 16:26 Blood Pressure 136/75 07/06/17 16:26 O2 Sat by Pulse Oximetry 95 07/06/17 16:26 Oxygen Delivery Oxygen Delivery Room Air Medical Decision Making - Lab Data Result diagrams: 07/06/17 17:12 07/06/17 17:12 Lab Results 07/06/17 07/06/17 07/06/17 Range/Units 17:12 17:12 17:12 WBC 5.2 (4.3-11.1) K/mcL RBC 4.26 (3.82-4.97) M/mcL Hgb 13.0 (11.5-15.4) g/dL Hct 39.8 (35.3-44.9) % MCV 93.4 (83.0-100.0) fL MCH 30.5 (28.0-33.3) pg MCHC 32.7 (31.6-35.5) g/dL RDW 13.5 (11.5-14.5) % Plt Count 210 (140-400) K/mcL MPV 10.1 (9.4-12.4) fL Immature Gran % 0.2 (0-4) % Seg Neutrophils % 60.3 % Lymphocytes % 22.8 % Monocytes % 13.4 % Eosinophils % 3.1 % Basophils % 0.2 % Neutrophils # 3.2 (1.6-8.9) K/mcL Lymphocytes # 1.2 (0.6-4.6) K/mcL Monocytes # 0.7 (0.0-1.3) K/mcL Eosinophils # 0.2 (0.0-0.6) K/mcL Basophils # 0.0 (0.0-0.2) K/mcL PT 11.5 (9.4-12.1) Seconds INR 1.1 Sodium 138 (136-145) mEq/L Potassium 4.4 (3.5-5.1) mEq/L Chloride 103 (98-107) mEq/L Carbon Dioxide 28 (23-29) mEq/L BUN 21 (8-23) mg/dL Creatinine 1.32 H (0.60-1.20) mg/dL Est GFR ( Amer) 48 L (> 60) Est GFR (Non-Af Amer) 40 L (> 60) BUN/Creatinine Ratio 16 (6-26) Glucose 174 H (70-105) mg/dL Calculated Osmolality 293 (280-300) Calcium 10.3 (8.6-10.3) mg/dL
[2017-07-06 18:08] LABS: Troponin I 0.16 ng/mL (< 0.04)
[2017-07-06] MEDS ORDERED: *HR* Heparin 5,000 UNIT/ML VIAL IVP ONE (18:08)
[2017-07-06] MEDS ORDERED: *HR* Heparin 5,000 UNIT/ML VIAL IVP PRN ×2 (18:08)
[2017-07-06] MEDS ORDERED: Heparin 25,000 UNIT/500 ML D5W 25,000 UNIT/500 ML BAG IVC SCH (18:15)
[2017-07-06] MEDS ORDERED: traMADol 50 MG TABLET PO PRN (20:58)
[2017-07-06] MEDS ORDERED: Sennosides/Docusate Sodium TABLET PO PRN (20:58)
[2017-07-06] MEDS ORDERED: ALPRAZolam 0.5 MG TABLET PO PRN (20:58)
[2017-07-06] MEDS ORDERED: NON-FORMULARY MEDICATION 1 EACH EACH (Insulin Detemir [Levemir Flextouch] 60 UNIT) SQ SCH (21:00)
[2017-07-06] MEDS ORDERED: Naloxone 0.4 MG/ML INJ IVP PRN (21:00)
[2017-07-06] MEDS ORDERED: D5% in Water 1,000 ML IVC PRN (21:01)
[2017-07-06] MEDS ORDERED: *HR* Dextrose 50 % in Water (Syg) 50 ML SYRINGE IVP PRN (21:01)
[2017-07-06] MEDS ORDERED: Dextrose Gel 15 GM/37.5 ML TUBE PO PRN ×2 (21:01)
--- NOTE | 2017-07-06 21:07 | Internal Med History&Physical ---
Date of Encounter: 07/06/17 Time of Encounter: 21:05 Assessment and Plan (1) NSTEMI (non-ST elevated myocardial infarction) Current visit: Yes Status: Acute Continue IV heparin started in the ER Trend troponin nitropaste Consult cardiology (2) Elevated troponin Current visit: No Status: Acute Management as above (3) CKD (chronic kidney disease), stage III Current visit: No Status: Chronic continue monitoring (4) Hypertension Current visit: No Status: Chronic continue med Qualifiers: Hypertension type: essential hypertension Qualified Code(s): I10 - Essential (primary) hypertension Internal Medicine - H&P: HPI Chief complaint: chest pain, dizziness, diaphoresis History of present illness: Ms. Alcantar is a 72 year old female with CAD s/p stent x 15 Jan [address] brothers/Mary Ann who presents with symptoms of chest pain, dizziness, diaphoresis. Admitted for NSTEMI. Patient had recently undergone PCI times 01/15/2017 and has been with cardiac rehabilitation and was about to be discharged from rehabilitation today when at 3:30 PM while undergoing cardiac rehabilitation developed chest heaviness, no radiation, pressure-like sensation, 5 out of 10, radiating to left arm. It improved to 3 out of 10 with time. Associated with elevated blood pressure as measured on site, felt weak, was lightheaded and dizzy and diaphoretic. Palpation cardiology has plans for a defib/pacer placement this coming Sunday as an elective procedure EKG personally reviewed with rate of 102, sinus tachycardia, left bundle branch block that is unchanged from prior XR/XR chest 1V portable IMPRESSION: No acute findings. Past Med Surg Social Fam HX - Past Medical History Medical history: arthritis, atrial fibrillation, cancer, cardiomyopathy, cirrhosis, COPD, coronary artery disease, diabetes, GERD, hyperlipidemia, hypertension, malignancy, myocardial infarction Psychiatric history: anxiety, depression - Past Surgical History Surgical History: breast surgery, cancer surgery, cholecystectomy, hysterectomy , knee replacement - Social History Smoking Status: Never smoker Smokeless Tobacco Status: No Alcohol use: none Drug use: none - Family History Mother Adopted: No Family Member Ethnicity: Non- Living Status: Hx Family Cardiac Disorders: Yes Hx Family Respiratory Disorders: Yes Hx Family Cancer: No Hx Family GI Disorders: No Hx Family Endocrine Disorder: Yes Hx Family Neuromuscular Disorders: No Hx Family Neurologic Disorders: No Hx Family HEENT Disorders: No Hx Family Autoimmune Disorders: No Father Twin of Family Member: Yes Living Status: Hx Family Cardiac Disorders: Yes Hx Family Respiratory Disorders: No Hx Family Cancer: No Hx Family GI Disorders: No Hx Family Endocrine Disorder: No Hx Family Neuromuscular Disorders: No Hx Family Neurologic Disorders: No Hx Family HEENT Disorders: No Hx Family Autoimmune Disorders: No Internal Medicine - H&P: Meds Alprazolam [Xanax] 0.5 mg PO TID PRN 11/30/14 [History] Amitriptyline [Elavil] 25 - 50 mg PO HS 11/30/14 [History] Aspirin Enteric Coated [Aspirin EC] 81 mg PO QAM 11/30/14 [History] Gabapentin [Neurontin] 600 mg PO QID 11/30/14 [History] Insulin LISPRO [Humalog Kwikpen U-200] 30 unit SQ TIDWM 11/30/14 [History] Isosorbide MONOnitrate (24 HR) [Imdur] 120 mg PO QAM 11/30/14 [History] Krill/Om-3/Dha/Epa/Phospho/Ast [Krill Oil 1,000 mg Softgel] 500 mg PO DAILY [History] Multivit-Min/FA/Lycopen/Lutein [Centrum Silver Tablet] 1 tab PO QAM 11/30/14 [ History] TraMADol [Ultram] 50 mg PO Q6HR PRN 11/30/14 [History] Metoprolol Succinate 50 mg PO DAILY 02/09/17 [History] Ranitidine HCl [Heartburn Relief] 150 mg PO BID 02/09/17 [History] Ranolazine [Ranexa] 500 mg PO BID 02/09/17 [History] DULoxetine [Cymbalta] 30 mg PO BID 02/10/17 [History] Clopidogrel [Plavix] 75 mg PO DAILY #30 tablet 02/13/17 [Rx] Furosemide [Lasix] 20 mg PO DAILY #30 tablet 02/13/17 [Rx] Sennosides/Docusate Sodium [Stool Softener Tablet] 1 each PO DAILY PRN 04/19/17 [History] Vit C/E/Zn/Coppr/Lutein/Zeaxan [Preservision Areds 2 Softgel] 1 cap PO DAILY 08/01 [History] Insulin DETEMIR [Levemir Flextouch] 60 unit SQ BID 07/06/17 [History] Simvastatin [Zocor] 20 mg PO HS 07/06/17 [History] 3 Allergy/AdvReac Type Severity Reaction Status Date / Time Penicillins Allergy Severe Anaphylaxis Verified 04/19/17 13:34 All Systems PM: A 10-system review of systems was performed and is negative for pertinent findings except as documented above in the HPI. Review of systems: ROS 14 point review of systems reviewed as best as possible given presentation. Pertinent positive or negative as per HPI or otherwise reviewed as negative - Constitutional Vitals: Temp Pulse Resp BP Pulse Ox 98.4 F 91 16 110/73 94 07/06/17 21:00 07/06/17 21:00 07/06/17 21:00 07/06/17 21:00 07/06/17 21:00 Exam: General - AAO x 3 Psych - Appropriate affect/speech. No agitation Eyes - TYLOR. Eye lids intact. No scleral icterus Heart - Sinus. RRR. S1 and S2 present. No added HS/murmurs appreciated. No elevated JVD appreciated. Lung - Adequate air entry b/l, No crackles/wheezes appreciated GI - Soft, non-tender. No hepatosplenomegaly/ascites. BS+ - No CVA/suprapubic tenderness or palpable bladder distension Skin - Intact. No rash/petechiae/ecchymosis. Warm extremities MSK - Joints with normal ROM. No joint swellings Internal Med - H&P Results - Labs CBC & Chem 7: 07/06/17 17:12 07/06/17 17:12
[2017-07-06] MEDS ORDERED: Nitroglycerin 1 INCH/GM PACKET TP ONE (21:12)
[2017-07-06] MEDS: Gabapentin 300 MG CAPSULE PO SCH (22:19)
[2017-07-06] MEDS: Ranolazine 500 MG TAB.ER.12H PO SCH (22:19)
[2017-07-06] MEDS: Insulin DETEMIR 100 UNIT/ML X5UNITS SQ SCH (22:20)
[2017-07-07 00:16] LABS: Activated Partial Thrombo Time 129.4 Seconds (26.0-36.0)
[2017-07-07 00:23] LABS: Heparin anti-factor XA UFH 0.85 IU/mL (0.30-0.70)
[2017-07-07 06:05] LABS: Basophils % 0.2 %; Eosinophils # 0.2 K/mcL (0.0-0.6); Eosinophils % 4.1 %; Hematocrit 36.8 % (35.3-44.9); Hemoglobin 11.7 g/dL (11.5-15.4); Immature Granulocytes % 0.2 % (0-4); Lymphocytes % 39.5 %; Mean Corpuscular HGB Conc 31.8 g/dL (31.6-35.5); Mean Corpuscular Hemoglobin 29.9 pg (28.0-33.3); Mean Corpuscular Volume 94.1 fL (83.0-100.0); Mean Platelet Volume 10.3 fL (9.4-12.4); Monocytes # 0.7 K/mcL (0.0-1.3); Monocytes % 14.3 %; Neutrophils # 2.1 K/mcL (1.6-8.9); Platelet Count 200 K/mcL (140-400); Red Blood Count 3.91 M/mcL (3.82-4.97); Red Cell Distribution Width 13.6 % (11.5-14.5); Segmented Neutrophils % 41.7 %
[2017-07-07 06:27] LABS: Calcium 9.6 mg/dL (8.6-10.3); Potassium 4.1 mEq/L (3.5-5.1)
[2017-07-07] MEDS ORDERED: Famotidine 20 MG TABLET PO SCH (07:30)
[2017-07-07] MEDS: Isosorbide MONOnitrate (24 HR) 60 MG TAB.ER.24H PO SCH (08:01)
[2017-07-07] MEDS: Furosemide 20 MG TABLET PO SCH (08:01)
[2017-07-07] MEDS: Gabapentin 300 MG CAPSULE PO SCH ×4 (08:01→21:10)
[2017-07-07] MEDS: Ranolazine 500 MG TAB.ER.12H PO SCH ×2 (08:01→21:10)
[2017-07-07] MEDS: Aspirin Enteric Coated 81 MG Tablet PO SCH (08:01)
[2017-07-07] MEDS: Metoprolol XL (24 HR) Succ 50 MG TAB.ER.24H PO SCH (08:01)
[2017-07-07] MEDS: Insulin LISPRO 300 UNITS/3 ML VIAL SQ SCH ×7 (08:02→21:11)
[2017-07-07] MEDS: Insulin DETEMIR 100 UNIT/ML X5UNITS SQ SCH ×2 (08:07→21:10)
--- NOTE | 2017-07-07 11:07 | Cardiology Consult Note ---
Date of Encounter: 07/07/17 Time of Encounter: 09:45 Assessment and Plan (1) Elevated troponin Current Visit: No Status: Acute Per cardiology: -Troponins 0.16, 0.21, 0.16. Appears to have chronically elevated troponins, dating back to 2014. -Patient had one episode of chest pain with exertion. -No acute ischemic ECG changes noted. -Denies current chest pain. -On asa, plavix, statin, beta che, imdur, and ranexa. Currently on heparin drip. -Will increase ranexa to 1000mg BID. -Patient is already enrolled in cardiac rehab. Cardiac rehab consult not appropriate. -Per discussion with , will stop heparin drip. (2) CAD (coronary artery disease) Current Visit: Yes Status: Chronic Per cardiology: -Known CAD s/p [facility] 02/12/17 with 90% diagonal 1 with LO placed, 60% mid circumflex, 100% distal circumflex with LO placed, 70% OM2, 90% mid RCA vessel is small and non-dominant, has WILMAN flow 3. -TTE 05/2017 with LVEF 25%, global hypokinesis. -Had one episode of chest pain during exertion, no recurrence. -Will increase ranexa to 1000mg BID, known small vessel disease. Qualifiers: Coronary Disease-Associated Artery/Lesion type: [place] artery [place] vs. transplanted heart: [place] heart Associated angina: with unspecified angina Qualified Code(s): I25.119 - Atherosclerotic heart disease of [place] coronary artery with unspecified angina pectoris (3) Ischemic cardiomyopathy Current Visit: Yes Status: Chronic Per cardiology: -Known ICM. -Last EF 25% 05/2017. -On BB, not on keanu/arb due to renal function. -Euvolemic on exam. -Of note, was planned for ICD insertion on Sunday. -will continue to monitor. Discussion w patient/family: The assessment and plan as outlined above was discussed with the patient who expressed understanding and agreement. All questions were answered. Thank you for involving us in the care of your patient. Please call with any questions. Discussed and reviewed with . History of Present Illness Consult date: 07/06/17 Requesting physician: Nay Willett Consult reason: elevated troponin Chief complaint: chest pain, shortness of breath History of present illness: Ms. Alcantar is a 72 year old female with a relevant past medical history of CAD s/ p PCI 01/2017, ischemic cardiomyopathy, MA, COPD, HTN, hyperlipidemia. Patient presented to [facility] after episode of chest pain and shortness of breath while at cardiac rehab. Patient reports she was excercising at rehab when she noticed symptoms. Patient reports chest pain and shortness of breath worsened with exertion and were relieved with rest. Patient denies current chest pain or shortness of breath. Patient reports fatigue is about baseline. Past Med Surg Social Fam HX - Past Medical History Attestation: Yes The following information was validated with the patient. Source: patient, old records reviewed Medical history: arthritis, atrial fibrillation, cancer, cardiomyopathy, cirrhosis, COPD, coronary artery disease, diabetes, GERD, hyperlipidemia, hypertension, malignancy, myocardial infarction Psychiatric history: anxiety, depression - Past Surgical History Surgical History: breast surgery, cancer surgery, cholecystectomy, hysterectomy , knee replacement - Social History Smoking Status: Never smoker Smokeless Tobacco Status: No Alcohol use: none Drug use: none - Family History Mother Adopted: No Family Member Ethnicity: Non- Living Status: Hx Family Cardiac Disorders: Yes Hx Family Respiratory Disorders: Yes Hx Family Cancer: No Hx Family GI Disorders: No Hx Family Endocrine Disorder: Yes Hx Family Neuromuscular Disorders: No Hx Family Neurologic Disorders: No Hx Family HEENT Disorders: No Hx Family Autoimmune Disorders: No Father Twin of Family Member: Yes Living Status: Hx Family Cardiac Disorders: Yes Hx Family Respiratory Disorders: No Hx Family Cancer: No Hx Family GI Disorders: No Hx Family Endocrine Disorder: No Hx Family Neuromuscular Disorders: No Hx Family Neurologic Disorders: No Hx Family HEENT Disorders: No Hx Family Autoimmune Disorders: No Medications and Allergies Alprazolam [Xanax] 0.5 mg PO TID PRN 11/30/14 [History] Amitriptyline [Elavil] 25 - 50 mg PO HS 11/30/14 [History] Aspirin Enteric Coated [Aspirin EC] 81 mg PO QAM 11/30/14 [History] Gabapentin [Neurontin] 600 mg PO QID 11/30/14 [History] Insulin LISPRO [Humalog Kwikpen U-200] 30 unit SQ TIDWM 11/30/14 [History] Isosorbide MONOnitrate (24 HR) [Imdur] 120 mg PO QAM 11/30/14 [History] Krill/Om-3/Dha/Epa/Phospho/Ast [Krill Oil 1,000 mg Softgel] 500 mg PO DAILY [History] Multivit-Min/FA/Lycopen/Lutein [Centrum Silver Tablet] 1 tab PO QAM 11/30/14 [ History] TraMADol [Ultram] 50 mg PO Q6HR PRN 11/30/14 [History] Metoprolol Succinate 50 mg PO DAILY 02/09/17 [History] Ranitidine HCl [Heartburn Relief] 150 mg PO BID 02/09/17 [History] Ranolazine [Ranexa] 500 mg PO BID 02/09/17 [History] DULoxetine [Cymbalta] 30 mg PO BID 02/10/17 [History] Clopidogrel [Plavix] 75 mg PO DAILY #30 tablet 02/13/17 [Rx] Furosemide [Lasix] 20 mg PO DAILY #30 tablet 02/13/17 [Rx] Sennosides/Docusate Sodium [Stool Softener Tablet] 1 each PO DAILY PRN 04/19/17 [History] Vit C/E/Zn/Coppr/Lutein/Zeaxan [Preservision Areds 2 Softgel] 1 cap PO DAILY 08/01 [History] Insulin DETEMIR [Levemir Flextouch] 60 unit SQ BID 07/06/17 [History] Simvastatin [Zocor] 20 mg PO HS 07/06/17 [History] 3 Allergy/AdvReac Type Severity Reaction Status Date / Time Penicillins Allergy Severe Anaphylaxis Verified 04/19/17 13:34 All Systems Review: The remainder of the systems were reviewed and are negative - Cardiovascular Cardiovascular: as per HPI, chest pain with exertion, dyspnea on exertion Physical Examination Vital Signs, Last 4 Hours Temp Pulse Resp BP Pulse Ox 07/07/17 07:42 98.2 F 75 16 107/68 92 General: Conversant, No Apparent Distress HEENT: Atraumatic, Normocephaly, Mucus Membranes Moist Neck: No JVD, Normal carotid pulses Cardiac: Reg Rate and Rhythm, Normal S1 and S2, No Murmur Lungs: Normal Breath Sounds, No Wheeze, Rales, Rhonchi Neuro: Alert and responsive, No focal deficits noted Abdomen: Soft, Non-Tender Skin: No rashes noted on visualized skin Musculoskeletal: No Chest Wall Tenderness Extremities: No Clubbing, No Cyanosis, No Edema, Normal Pulses Results 07/07/17 05:47 07/07/17 05:47 Lab Results Impressions Chest X-Ray 07/06/17 16:50 IMPRESSION: No acute findings. D/ / Kamryn Winslow MD / Kamryn Winslow MD Interpreting Provider: Kamryn Winslow MD Active Medications Alprazolam (Xanax) 0.5 mg PO TID PRN; Protocol PRN Reason: Anxiety Stop: 01/05/18 20:59 Amitriptyline HCl (Elavil) 25 mg PO HS [facility] Stop: 01/05/18 21:01 Last Admin: 07/06/17 22:20 Dose: 25 mg Aspirin (Aspirin Ec) 81 mg PO QAM [facility] Stop: 01/06/18 09:01 Last Admin: 07/07/17 08:01 Dose: 81 mg Clopidogrel Bisulfate (Plavix) 75 mg PO DAILY [facility] Stop: 01/06/18 09:01 Last Admin: 07/07/17 08:00 Dose: 75 mg Dextrose/Water (Dextrose 50% (Syg)) 25 ml IVP AD PRN PRN Reason: Hypoglycemia Stop: 01/05/18 21:02 Duloxetine HCl (Cymbalta) 30 mg PO BID [facility] Stop: 01/05/18 21:01 Last Admin: 07/07/17 08:01 Dose: 30 mg Famotidine (Pepcid) 20 mg PO BIDAC [facility] Stop: 01/06/18 07:31 Last Admin: 07/07/17 08:01 Dose: 20 mg Furosemide (Lasix) 20 mg PO DAILY [facility] Stop: 01/06/18 09:01 Last Admin: 07/07/17 08:01 Dose: 20 mg Gabapentin (Neurontin) 600 mg PO QID [facility] Stop: 01/05/18 21:01 Last Admin: 07/07/17 08:01 Dose: 600 mg Glucagon (Glucagen) 1 mg IM ONCE PRN PRN Reason: Hypoglycemia Stop: 01/05/18 21:02 Glucose (Gluctose) 15 gm PO ONCE PRN PRN Reason: Hypoglycemia Stop: 01/05/18 21:02 Glucose (Gluctose) 30 gm PO ONCE PRN PRN Reason: Hypoglycemia Stop: 01/05/18 21:02 Heparin Sodium (Porcine) (Heparin) 4,000 unit IVP Q6HR PRN PRN Reason: SEE COMMENTS Stop: 01/05/18 18:09 Last Admin: 07/07/17 10:25 Dose: 2,400 unit Heparin Sodium (Porcine) (Heparin) 2,000 unit IVP Q6H PRN PRN Reason: SEE COMMENTS Stop: 01/05/18 18:09 Heparin Sodium/Dextrose (Heparin 25,000 Unit/500 Ml D5w) 25,000 unit in 500 mls @ 19.269 mls/hr IVC .Q24H [facility]ANY; 12 UNIT/KG/HR PRN Reason: Protocol Stop: 01/05/18 18:16 Last Titration: 07/07/17 10:24 Dose: 10.84 unit/kg/hr, 17.406 mls/hr Dextrose (Dextrose 5%) 1,000 mls @ 100 mls/hr IVC .Q10H PRN PRN Reason: HYPOGLYCEMIA Stop: 01/05/18 21:02 Insulin Detemir (Levemir) 60 unit SQ BID [facility] Stop: 01/05/18 21:16 Last Admin: 07/07/17 08:07 Dose: 60 unit Insulin Human Lispro (Humalog) 0 units SQ TIDAC [facility] PRN Reason: Protocol Stop: 01/06/18 07:31 Last Admin: 07/07/17 08:02 Dose: Not Given Insulin Human Lispro (Humalog) 0 units SQ HS [facility] PRN Reason: Protocol Stop: 01/06/18 21:01 Insulin Human Lispro (Humalog) 15 units SQ TIDWM [facility] Stop: 01/06/18 08:01 Last Admin: 07/07/17 08:07 Dose: Not Given Isosorbide Mononitrate (Imdur) 120 mg PO QAM [facility] Stop: 01/06/18 09:01 Last Admin: 07/07/17 08:01 Dose: 120 mg Metoprolol Succinate (Toprol Xl) 50 mg PO DAILY [facility] Stop: 01/06/18 09:01 Last Admin: 07/07/17 08:01 Dose: 50 mg Naloxone HCl (Narcan) 0.4 mg IVP Q2MIN PRN PRN Reason: SEE COMMENTS Stop: 01/05/18 21:01 Ranolazine (Ranexa) 1,000 mg PO BID [facility] Stop: 01/06/18 21:01 Senna/Docusate Sodium (Senna Plus) 1 each PO DAILY PRN; Protocol PRN Reason: Constipation Stop: 01/05/18 20:59 Simvastatin (Zocor) 20 mg PO HS [facility] PRN Reason: Protocol Stop: 01/05/18 21:01 Last Admin: 07/06/17 22:19 Dose: 20 mg Tramadol HCl (Ultram) 50 mg PO Q6HR PRN PRN Reason: Pain Stop: 01/05/18 20:59 Laboratory Tests 06/19/17 06/26/17 07/06/17 10:22 10:28 17:12 Hgb Creatinine 1.39 H 1.30 H 1.32 H Troponin I 0.16 H* 07/06/17 07/07/17 07/07/17 23:42 05:47 05:47 Hgb 11.7 Creatinine 1.34 H Troponin I 0.21 H* 07/07/17 05:47 Hgb Creatinine Troponin I 0.16 H* - Imaging and Cardiology Chest Xray: report reviewed Echo: report reviewed Cardiac cath: report reviewed - EKG Interpretation EKG results cardiology: personally reviewed (ECG with ST, LBBB noted.), other ( Telemetry reviewed with average HR previous 12 hours noted to be 77, SR. PACs noted.) Consult Discharge Plan - Plan Referrals: Clifton,Merlene Horan REVOLVING INVENTORY CLERK [Primary Care Provider] -
--- NOTE | 2017-07-07 11:53 | Internal Med Progress Note ---
Date of Encounter: 07/07/17 Time of Encounter: 11:51 - Assessment and plan (1) NSTEMI (non-ST elevated myocardial infarction) Current Visit: Yes Status: Acute Assessment and plan: Heparin drip started. Troponins were elevated at 0.16, 0.21, 0.16. EKG with no ST or T-wave changes. Cardiology is consulted. Ranexa was added. Continue beta ceh. Continue aspirin and Plavix. Continue statin. Follow up on cardiology's recommendations. (2) Ischemic cardiomyopathy Current Visit: Yes Status: Chronic Assessment and plan: Patient has a low EF of 25% on a heart catheterization that was done back in January 2017. She is planned to have a defibrillator and pacemaker placed this coming Sunday on 07/09. We will await cardiology's recommendations. (3) CAD (coronary artery disease) Current Visit: Yes Status: Chronic Assessment and plan: Continue aspirin, Plavix, statin. Cardiology added Ranexa. The patient is on Imdur as well. Patient has an EF of 20% on an echo done back in January 2017. EF 25% on heart catheterization was done then. Qualifiers: Coronary Disease-Associated Artery/Lesion type: [place] artery [place] vs. transplanted heart: [place] heart Associated angina: with unspecified angina Qualified Code(s): I25.119 - Atherosclerotic heart disease of [place] coronary artery with unspecified angina pectoris (4) CKD (chronic kidney disease), stage III Current Visit: No Status: Chronic Assessment and plan: Stable. Continue to monitor. (5) Hypertension Current Visit: No Status: Chronic Assessment and plan: Blood pressure stable. Continue metoprolol. Qualifiers: Hypertension type: essential hypertension Qualified Code(s): I10 - Essential (primary) hypertension (6) DVT prophylaxis Current Visit: Yes Status: Acute Assessment and plan: On a heparin drip - Subjective Interval history: Patient seen and examined. No chest pain. No acute events. Admitted with an episode of chest pain while undergoing cardiac rehabilitation. Has a known coronary disease status post PCI not too long ago. On admission troponins were elevated at 0.16 and then went up to 0.21 and back down to 0.16. EKG with no ST or T-wave changes. Started on a heparin drip. - Constitutional Vitals: Temp Pulse Resp BP Pulse Ox 98.2 F 75 16 107/68 92 07/07/17 07:42 07/07/17 07:42 07/07/17 07:42 07/07/17 07:42 07/07/17 07:42 Exam: GEN: NAD CVS: RRR. S1, S2, No m/r/g RESP: CTAB ABD: Soft, NT, ND, +BS EXT: No edema. 2+ DP. No rashes NEURO: Nonfocal Internal Medicine: Result - Labs CBC & Chem 7: 07/07/17 05:47 07/07/17 05:47 Labs: Short CBC 07/07/17 Range/Units 05:47 WBC 5.1 (4.3-11.1) K/mcL Hgb 11.7 (11.5-15.4) g/dL Hct 36.8 (35.3-44.9) % Plt Count 200 (140-400) K/mcL Neutrophils # 2.1 (1.6-8.9) K/mcL BMP 07/07/17 05:47 Sodium 137 Potassium 4.1 Chloride 104 Carbon Dioxide 26 BUN 22 Creatinine 1.34 H Glucose 141 H Calcium 9.6 Cardiac Enzymes 07/06/17 07/07/17 Range/Units 23:42 05:47 Troponin I 0.21 H* 0.16 H* (< 0.04) ng/mL - ABG Interpretation ABG results: PT/INR, D-dimer PT 11.5 Seconds (9.4-12.1) 07/06/17 17:12 Consult Discharge Plan - Plan Referrals: Clifton,Merlene Horan CLINICAL PHARMACY MANAGER [Primary Care Provider] -
[2017-07-08 07:32] LABS: Calcium 9.3 mg/dL (8.6-10.3)
[2017-07-08] MEDS: Insulin LISPRO 300 UNITS/3 ML VIAL SQ SCH ×7 (08:10→20:53)
[2017-07-08] MEDS: Gabapentin 300 MG CAPSULE PO SCH ×4 (08:25→21:15)
[2017-07-08] MEDS: Furosemide 20 MG TABLET PO SCH (08:25)
[2017-07-08] MEDS: Aspirin Enteric Coated 81 MG Tablet PO SCH (08:25)
[2017-07-08] MEDS: Famotidine 20 MG TABLET PO SCH (08:25)
[2017-07-08] MEDS: Isosorbide MONOnitrate (24 HR) 60 MG TAB.ER.24H PO SCH (08:25)
[2017-07-08] MEDS: Metoprolol XL (24 HR) Succ 50 MG TAB.ER.24H PO SCH (08:25)
[2017-07-08] MEDS: Ranolazine 500 MG TAB.ER.12H PO SCH ×2 (08:25→21:16)
[2017-07-08] MEDS: Insulin DETEMIR 100 UNIT/ML X5UNITS SQ SCH ×2 (08:39→21:16)
--- NOTE | 2017-07-08 10:38 | Internal Med Progress Note ---
Date of Encounter: 07/08/17 Time of Encounter: 10:37 - Assessment and plan (1) NSTEMI (non-ST elevated myocardial infarction) Current Visit: Yes Status: Acute Assessment and plan: Heparin drip started then turned off by cardiology. Troponins were elevated at 0.16, 0.21, 0.16. EKG with no ST or T-wave changes. Cardiology is consulted. Ranexa was increased. No chest pain now.. Continue beta che. Continue aspirin and Plavix. Continue statin. (2) Ischemic cardiomyopathy Current Visit: Yes Status: Chronic Assessment and plan: Patient has a low EF of 25% on a heart catheterization that was done back in January 2017. Nothing by mouth after midnight for ICD and pacemaker placement. (3) CAD (coronary artery disease) Current Visit: Yes Status: Chronic Assessment and plan: Continue aspirin, Plavix, statin. Cardiology added Ranexa. The patient is on Imdur as well. Patient has an EF of 20% on an echo done back in January 2017. EF 25% on heart catheterization was done then. Qualifiers: Coronary Disease-Associated Artery/Lesion type: [place] artery [place] vs. transplanted heart: [place] heart Associated angina: with unspecified angina Qualified Code(s): I25.119 - Atherosclerotic heart disease of [place] coronary artery with unspecified angina pectoris (4) CKD (chronic kidney disease), stage III Current Visit: No Status: Chronic Assessment and plan: Stable. Continue to monitor. (5) Hypertension Current Visit: No Status: Chronic Assessment and plan: Blood pressure stable. Continue metoprolol. Qualifiers: Hypertension type: essential hypertension Qualified Code(s): I10 - Essential (primary) hypertension (6) DVT prophylaxis Current Visit: Yes Status: Acute Assessment and plan: On a heparin drip - Subjective Interval history: Patient seen and examined. Ranexa was increased. No chest pain. No acute events. Admitted with an episode of chest pain while undergoing cardiac rehabilitation. Has a known coronary disease status post PCI not too long ago. On admission troponins were elevated at 0.16 and then went up to 0.21 and back down to 0.16. EKG with no ST or T-wave changes. Started on a heparin drip but now turned off by cardiology.. - Constitutional Vitals: Temp Pulse Resp BP Pulse Ox 97.8 F 78 17 106/59 95 07/08/17 07:40 07/08/17 07:40 07/08/17 07:40 07/08/17 07:40 07/08/17 07:40 Exam: GEN: NAD CVS: RRR. S1, S2, No m/r/g RESP: CTAB ABD: Soft, NT, ND, +BS EXT: No edema. 2+ DP. No rashes NEURO: Nonfocal Internal Medicine: Result - Labs CBC & Chem 7: 07/07/17 05:47 07/08/17 06:32 Labs: BMP 07/08/17 06:32 Sodium 137 Potassium 4.0 Chloride 103 Carbon Dioxide 27 BUN 25 H Creatinine 1.61 H Glucose 130 H Calcium 9.3 - ABG Interpretation ABG results: PT/INR, D-dimer PT 11.5 Seconds (9.4-12.1) 07/06/17 17:12 Consult Discharge Plan - Plan Referrals: Merlene Lazo HEEL SEAT FLAP STAPLER [Primary Care Provider] - (web request sent on 07/07/17)
[2017-07-08] MEDS ORDERED: Clindamycin 900 MG/50 ML 900 MG/50 ML IV.SOLN IVPB ONE (10:50)
--- NOTE | 2017-07-08 10:53 | Cardiology Progress Note ---
Date of Encounter: 07/08/17 Time of Encounter: 09:00 Assessment and Plan (1) Elevated troponin Current Visit: No Status: Acute Per cardiology: -Troponins 0.16, 0.21, 0.16. Appears to have chronically elevated troponins, dating back to 2014. -Patient had one episode of chest pain with exertion. NO recurrence. -No acute ischemic ECG changes noted. -Denies current chest pain. -On asa, plavix, statin, beta che, imdur, and ranexa. -Patient is already enrolled in cardiac rehab. Cardiac rehab consult not appropriate. -Suspect chronically elevated. (2) CAD (coronary artery disease) Current Visit: Yes Status: Chronic Per cardiology: -Known CAD s/p [facility] 02/12/17 with 90% diagonal 1 with LO placed, 60% mid circumflex, 100% distal circumflex with LO placed, 70% OM2, 90% mid RCA vessel is small and non-dominant, has WILMAN flow 3. -TTE 05/2017 with LVEF 25%, global hypokinesis. -Had one episode of chest pain during exertion, no recurrence. -Will continue to monitor. Qualifiers: Coronary Disease-Associated Artery/Lesion type: [place] artery [place] vs. transplanted heart: [place] heart Associated angina: with unspecified angina Qualified Code(s): I25.119 - Atherosclerotic heart disease of [place] coronary artery with unspecified angina pectoris (3) Ischemic cardiomyopathy Current Visit: Yes Status: Chronic Per cardiology: -Known ICM. -Last EF 25% 05/2017. -On BB, not on keanu/arb due to renal function. -Euvolemic on exam. -PLanned ICD insertion tomorrow. -NPO after midnight. Discussion w patient/family: The assessment and plan as outlined above was discussed with the patient who expressed understanding and agreement. All questions were answered. Thank you for involving us in the care of your patient. Please call with any questions. Discussed and reviewed with . Subjective Principal diagnosis: chest pain Interval history: Patient states she feels well today. Denies chest pain or shortness of breath. Objective Vital Signs, Last 4 Hours Temp Pulse Resp BP Pulse Ox 07/08/17 07:40 97.8 F 78 17 106/59 95 General: Conversant, No Apparent Distress HEENT: Atraumatic, Normocephaly, Mucus Membranes Moist Neck: No JVD, Normal carotid pulses Cardiac: Reg Rate and Rhythm, Normal S1 and S2, No Murmur Lungs: Normal Breath Sounds, No Wheeze, Rales, Rhonchi Neuro: Alert and responsive, No focal deficits noted Abdomen: Soft, Non-Tender Skin: No rashes noted on visualized skin Musculoskeletal: No Chest Wall Tenderness Extremities: No Clubbing, No Cyanosis, No Edema, Normal Pulses Results 07/07/17 05:47 07/08/17 06:32 Lab Results Active Medications Alprazolam (Xanax) 0.5 mg PO TID PRN; Protocol PRN Reason: Anxiety Stop: 01/05/18 20:59 Amitriptyline HCl (Elavil) 25 mg PO HS [facility] Stop: 01/05/18 21:01 Last Admin: 07/07/17 21:10 Dose: 25 mg Aspirin (Aspirin Ec) 81 mg PO QAM [facility] Stop: 01/06/18 09:01 Last Admin: 07/08/17 08:25 Dose: 81 mg Clopidogrel Bisulfate (Plavix) 75 mg PO DAILY [facility] Stop: 01/06/18 09:01 Last Admin: 07/08/17 08:25 Dose: 75 mg Dextrose/Water (Dextrose 50% (Syg)) 25 ml IVP AD PRN PRN Reason: Hypoglycemia Stop: 01/05/18 21:02 Duloxetine HCl (Cymbalta) 30 mg PO BID [facility] Stop: 01/05/18 21:01 Last Admin: 07/08/17 08:25 Dose: 30 mg Famotidine (Pepcid) 20 mg PO DAILY [facility] Stop: 01/06/18 07:31 Last Admin: 07/08/17 08:25 Dose: 20 mg Furosemide (Lasix) 20 mg PO DAILY [facility] Stop: 01/06/18 09:01 Last Admin: 07/08/17 08:25 Dose: 20 mg Gabapentin (Neurontin) 600 mg PO QID [facility] Stop: 01/05/18 21:01 Last Admin: 07/08/17 08:25 Dose: 600 mg Glucagon (Glucagen) 1 mg IM ONCE PRN PRN Reason: Hypoglycemia Stop: 01/05/18 21:02 Glucose (Gluctose) 15 gm PO ONCE PRN PRN Reason: Hypoglycemia Stop: 01/05/18 21:02 Glucose (Gluctose) 30 gm PO ONCE PRN PRN Reason: Hypoglycemia Stop: 01/05/18 21:02 Dextrose (Dextrose 5%) 1,000 mls @ 100 mls/hr IVC .Q10H PRN PRN Reason: HYPOGLYCEMIA Stop: 01/05/18 21:02 Clindamycin Phosphate/Dextrose (Cleocin Premix 900 Mg/50 Ml) 900 mg in 50 mls @ 100 mls/hr IVPB PREOP ONE Stop: 07/08/17 11:19 Insulin Detemir (Levemir) 60 unit SQ BID [facility] Stop: 01/05/18 21:16 Last Admin: 07/08/17 08:39 Dose: 60 unit Insulin Human Lispro (Humalog) 0 units SQ TIDAC [facility] PRN Reason: Protocol Stop: 01/06/18 07:31 Last Admin: 07/08/17 08:10 Dose: Not Given Insulin Human Lispro (Humalog) 0 units SQ HS [facility] PRN Reason: Protocol Stop: 01/06/18 21:01 Last Admin: 07/07/17 21:11 Dose: Not Given Insulin Human Lispro (Humalog) 15 units SQ TIDWM [facility] Stop: 01/06/18 08:01 Last Admin: 07/08/17 08:26 Dose: 15 units Isosorbide Mononitrate (Imdur) 120 mg PO QAM [facility] Stop: 01/06/18 09:01 Last Admin: 07/08/17 08:25 Dose: 120 mg Metoprolol Succinate (Toprol Xl) 50 mg PO DAILY [facility] Stop: 01/06/18 09:01 Last Admin: 07/08/17 08:25 Dose: 50 mg Naloxone HCl (Narcan) 0.4 mg IVP Q2MIN PRN PRN Reason: SEE COMMENTS Stop: 01/05/18 21:01 Ranolazine (Ranexa) 1,000 mg PO BID [facility] Stop: 01/06/18 21:01 Last Admin: 07/08/17 08:25 Dose: 1,000 mg Senna/Docusate Sodium (Senna Plus) 1 each PO DAILY PRN; Protocol PRN Reason: Constipation Stop: 01/05/18 20:59 Simvastatin (Zocor) 20 mg PO [facility] PRN Reason: Protocol Stop: 01/05/18 21:01 Last Admin: 07/07/17 21:10 Dose: 20 mg Tramadol HCl (Ultram) 50 mg PO Q6HR PRN PRN Reason: Pain Stop: 01/05/18 20:59 Laboratory Tests 07/08/17 06:32 Creatinine 1.61 H - Imaging and Cardiology Chest Xray: report reviewed Echo: report reviewed Cardiac cath: report reviewed - EKG Interpretation EKG results cardiology: other (Telemetry reviewed with average HR previous 12 hours noted to be 79, SR. PVCs and PACs noted.) Consult Discharge Plan - Plan Referrals: Clifton,Merlene Horan CNP [Primary Care Provider] - (web request sent on 07/07/17)
[2017-07-09 05:42] LABS: Calcium 9.2 mg/dL (8.6-10.3); Potassium 4.2 mEq/L (3.5-5.1)
[2017-07-09] MEDS: Furosemide 20 MG TABLET PO SCH (08:07)
[2017-07-09] MEDS: Insulin LISPRO 300 UNITS/3 ML VIAL SQ SCH ×7 (08:07→22:03)
[2017-07-09] MEDS: Metoprolol XL (24 HR) Succ 50 MG TAB.ER.24H PO SCH ×2 (08:08→12:27)
[2017-07-09] MEDS: Gabapentin 300 MG CAPSULE PO SCH ×4 (08:09→22:04)
[2017-07-09] MEDS: Famotidine 20 MG TABLET PO SCH ×2 (08:09→12:27)
[2017-07-09] MEDS: Insulin DETEMIR 100 UNIT/ML X5UNITS SQ SCH ×2 (08:23→22:02)
--- NOTE | 2017-07-09 08:24 | Event Note ---
Date of Encounter: 07/09/17 Time of Encounter: 08:23 - Cardiology Event Note PLan for ICD placement today. Risks versus benefits of ICD explained to patient. Patient states understanding and agreeable to proceed. Further recommendations pending ICD.
--- NOTE | 2017-07-09 08:36 | Internal Med Progress Note ---
Date of Encounter: 07/09/17 Time of Encounter: 08:33 - Assessment and plan (1) NSTEMI (non-ST elevated myocardial infarction) Current Visit: Yes Status: Acute Assessment and plan: Heparin drip started then turned off by cardiology. Troponins were elevated at 0.16, 0.21, 0.16. EKG with no ST or T-wave changes. Cardiology is consulted. Ranexa was increased. No chest pain now. Continue beta che. Continue aspirin and Plavix. Continue statin. (2) Ischemic cardiomyopathy Current Visit: Yes Status: Chronic Assessment and plan: Patient has a low EF of 25% on a heart catheterization that was done back in January 2017. Nothing by mouth for ICD and pacemaker placement. (3) CAD (coronary artery disease) Current Visit: Yes Status: Chronic Assessment and plan: Continue aspirin, Plavix, statin. Cardiology added Ranexa. The patient is on Imdur as well. Patient has an EF of 20% on an echo done back in January 2017. EF 25% on heart catheterization was done then. Qualifiers: Coronary Disease-Associated Artery/Lesion type: [place] artery [place] vs. transplanted heart: [place] heart Associated angina: with unspecified angina Qualified Code(s): I25.119 - Atherosclerotic heart disease of [place] coronary artery with unspecified angina pectoris (4) CKD (chronic kidney disease), stage III Current Visit: No Status: Chronic Assessment and plan: creatinine has been increasing throughout stay. 1.32 on admission and is up to 1.74 today from 1.61 yesterday. Baseline seems to be around 1.2-1.4. Wouldnt give fluids with EF of 25%. May just need to hold lasix for a couple of days. I am holding it today. Continue to monitor. (5) Hypertension Current Visit: No Status: Chronic Assessment and plan: Blood pressure stable. Continue metoprolol. Qualifiers: Hypertension type: essential hypertension Qualified Code(s): I10 - Essential (primary) hypertension (6) DVT prophylaxis Current Visit: Yes Status: Acute Assessment and plan: heparin SQ - Subjective Interval history: Patient seen and examined. Ranexa was increased this stay. plans for ICD placement today. No chest pain. No acute events. Admitted with an episode of chest pain while undergoing cardiac rehabilitation. Has a known coronary disease status post PCI not too long ago. On admission troponins were elevated at 0.16 and then went up to 0.21 and back down to 0.16. EKG with no ST or T- wave changes. Started on a heparin drip but now turned off by cardiology.. - Constitutional Vitals: Temp Pulse Resp BP Pulse Ox 98.0 F 82 16 122/69 93 07/09/17 08:06 07/09/17 08:06 07/09/17 08:06 07/09/17 08:06 07/09/17 08:06 Exam: GEN: NAD CVS: RRR. S1, S2, No m/r/g RESP: CTAB ABD: Soft, NT, ND, +BS EXT: No edema. 2+ DP. No rashes NEURO: Nonfocal Internal Medicine: Result - Labs CBC & Chem 7: 07/07/17 05:47 07/09/17 05:07 Labs: BMP 07/09/17 05:07 Sodium 138 Potassium 4.2 Chloride 105 Carbon Dioxide 25 BUN 31 H Creatinine 1.74 H Glucose 197 H Calcium 9.2 - ABG Interpretation ABG results: PT/INR, D-dimer PT 11.5 Seconds (9.4-12.1) 07/06/17 17:12 Consult Discharge Plan - Plan Referrals: Clifton,Merlene Horan CNP [Primary Care Provider] - (web request sent on 07/07/17)
--- NOTE | 2017-07-09 08:55 | Pre-Sedation Evaluation ---
Pre-sedation evaluation - Pre-sedation checklist Date of procedure: 07/09/17 Procedure: ICD Insertion. Recent Vitals: Last Vital Signs Temp 98.0 F 07/09/17 08:06 Pulse 82 07/09/17 08:06 Resp 16 07/09/17 08:06 BP 122/69 07/09/17 08:06 Pulse Ox 93 07/09/17 08:06 H&P (including ROS) documented in medical record: Yes Previous reaction to sedatives/anesthetics: No Dietary Status: NPO after Midnight Airway Assessment: Patient can open mouth completely, TMJ function normal, Micrognathia (under-bite, receding chin) absent Dentition: dentures removed Possible difficult airway: No ASA Classification *see protocol: CLASS II-Mild systemic disease Plan of Care: Pt appropriate candidate for procedure/moderate/conscious sedation , Risks/benefits of procedure/sedation discussed w/ patient/family
[2017-07-09] MEDS ORDERED: ISOVUE-370 200 ML INFUS..BTL IV ONE (09:05)
[2017-07-09] MEDS ORDERED: 0.9 % Sodium Chloride 1,000 ML ONE (09:05)
[2017-07-09] MEDS ORDERED: Clindamycin 600 MG/50 ML 1,200 MG/100 ML IV.SOLN IVPB ONE (09:21)
[2017-07-09] MEDS ORDERED: 0.9 % Sodium Chloride 500 ML ONE (09:21)
[2017-07-09] MEDS ORDERED: Heparin 1,000 UNITS/500 mL 500 ML ONE (09:22)
[2017-07-09] MEDS ORDERED: *HR* FentaNYL (PF) 100 MCG/2 ML VIAL ONE (09:26)
[2017-07-09] MEDS ORDERED: *HR* Midazolam HCl 2 MG/2 ML VIAL ONE (09:26)
[2017-07-09] MEDS: Ranolazine 500 MG TAB.ER.12H PO SCH ×2 (12:26→22:04)
[2017-07-09] MEDS: Aspirin Enteric Coated 81 MG Tablet PO SCH (12:26)
[2017-07-09] MEDS: Isosorbide MONOnitrate (24 HR) 60 MG TAB.ER.24H PO SCH (12:27)
[2017-07-09] MEDS: *HR* Heparin 5,000 UNIT/ML VIAL SQ SCH ×2 (12:28→22:04)
[2017-07-09] MEDS ORDERED: Nitroglycerin 0.4 MG TAB.SUBL SL ONE (18:51)
[2017-07-09] MEDS: Nitroglycerin 0.4 MG TAB.SUBL SL PRN ×2 (18:53→19:06)
[2017-07-10] MEDS: *HR* Heparin 5,000 UNIT/ML VIAL SQ SCH (05:42)
[2017-07-10 06:04] LABS: Calcium 9.1 mg/dL (8.6-10.3); Potassium 4.6 mEq/L (3.5-5.1)
--- NOTE | 2017-07-10 06:33 | Electrocardiograph Report ---
[address] [place], [place] [address] Test Date: 2017-07-06 Pat Name: Megha Alcantar Department: 104 Room: 2A63 Gender: F [employer] Worker: YOLA : 1945 Requested By: Ricky Alexis Order Number: [id number] Reading MD: Silvio Rowley MD Measurements Intervals [place] Rate: 102 P: 59 VT: 172 QRS: -43 QRSD: 161 T: 116 QT: 398 QTc: 456 Interpretive Statements SINUS TACHYCARDIA MARKED LEFT AXIS DEVIATION LEFT BUNDLE BRANCH BLOCK Electronically Signed On 07-10-2017 6:31:55 EDT by Silvio Rowley MD
[2017-07-10 07:49] VITALS: BP 115/63
[2017-07-10] MEDS: Insulin LISPRO 300 UNITS/3 ML VIAL SQ SCH ×2 (08:05→08:19)
[2017-07-10] MEDS: Famotidine 20 MG TABLET PO SCH (08:19)
[2017-07-10] MEDS: Metoprolol XL (24 HR) Succ 50 MG TAB.ER.24H PO SCH (08:19)
[2017-07-10] MEDS: Isosorbide MONOnitrate (24 HR) 60 MG TAB.ER.24H PO SCH (08:19)
[2017-07-10] MEDS: Insulin DETEMIR 100 UNIT/ML X5UNITS SQ SCH (08:19)
[2017-07-10] MEDS: Aspirin Enteric Coated 81 MG Tablet PO SCH (08:19)
[2017-07-10] MEDS: Ranolazine 500 MG TAB.ER.12H PO SCH (08:19)
[2017-07-10] MEDS: Gabapentin 300 MG CAPSULE PO SCH (08:19)
--- NOTE | 2017-07-10 10:56 | Discharge Summary ---
Orders not resulted at time of discharge: Pending orders 07/10/17 09:09 XR chest 2V [XR] Routine Date of Encounter: 07/10/17 Time of Encounter: 10:54 - Discharge Diagnosis (1) NSTEMI (non-ST elevated myocardial infarction) Priority: Primary Status: Acute (2) Ischemic cardiomyopathy Priority: Secondary Status: Chronic (3) CAD (coronary artery disease) Priority: Secondary Status: Chronic Qualifiers: Coronary Disease-Associated Artery/Lesion type: [place] artery [place] vs. transplanted heart: [place] heart Associated angina: with unspecified angina Qualified Code(s): I25.119 - Atherosclerotic heart disease of [place] coronary artery with unspecified angina pectoris (4) CKD (chronic kidney disease), stage III Priority: Secondary Status: Chronic (5) Hypertension Priority: Secondary Status: Chronic Qualifiers: Hypertension type: essential hypertension Qualified Code(s): I10 - Essential (primary) hypertension Hospital course: Ms. Alcantar is a 72 year old female with CAD s/p stent x 15 Jan [address] brothers/Mary Ann who presented with symptoms of chest pain, dizziness, diaphoresis. Patient had recently undergone PCI times 01/15/2017 and has been with cardiac rehabilitation and was about to be discharged from rehabilitation when she developed CP. EKG personally reviewed with rate of 102, sinus tachycardia, left bundle branch block that is unchanged from prior. Trops were elevated at 0.16, 0.21, 0.16. Cardiology saw the patient and initally started heparin drip but eventually stopped it. Patient's Ranexa was increased to 1000 mg BID from 500 mg BID. She had no CP recurrences. She had a scheduled appointment for an ICD placement prior to coming here and she underwent an ICD placement while here. She was stable for discharge on 07/10/2017. - Time Spent with Patient Total time spent providing and/or coordinating discharge services: Greater than 30 minutes - Discharge Medications Prescriptions: Ranolazine [Ranexa] 1,000 mg PO BID #60 tab.er.12h Home Medications: Alprazolam [Xanax] 0.5 mg PO TID PRN 11/30/14 [History] Amitriptyline [Elavil] 25 - 50 mg PO HS 11/30/14 [History] Aspirin Enteric Coated [Aspirin EC] 81 mg PO QAM 11/30/14 [History] Gabapentin [Neurontin] 600 mg PO QID 11/30/14 [History] Insulin LISPRO [Humalog Kwikpen U-200] 30 unit SQ TIDWM 11/30/14 [History] Isosorbide MONOnitrate (24 HR) [Imdur] 120 mg PO QAM 11/30/14 [History] Krill/Om-3/Dha/Epa/Phospho/Ast [Krill Oil 1,000 mg Softgel] 500 mg PO DAILY [History] Multivit-Min/FA/Lycopen/Lutein [Centrum Silver Tablet] 1 tab PO QAM 11/30/14 [ History] TraMADol [Ultram] 50 mg PO Q6HR PRN 11/30/14 [History] Metoprolol Succinate 50 mg PO DAILY 02/09/17 [History] Ranitidine HCl [Heartburn Relief] 150 mg PO BID 02/09/17 [History] DULoxetine [Cymbalta] 30 mg PO BID 02/10/17 [History] Clopidogrel [Plavix] 75 mg PO DAILY #30 tablet 02/13/17 [Rx] Furosemide [Lasix] 20 mg PO DAILY #30 tablet 02/13/17 [Rx] Sennosides/Docusate Sodium [Stool Softener Tablet] 1 each PO DAILY PRN 04/19/17 [History] Vit C/E/Zn/Coppr/Lutein/Zeaxan [Preservision Areds 2 Softgel] 1 cap PO DAILY 08/01 [History] Insulin DETEMIR [Levemir Flextouch] 60 unit SQ BID 07/06/17 [History] Simvastatin [Zocor] 20 mg PO HS 07/06/17 [History] Ranolazine [Ranexa] 1,000 mg PO BID #60 tab.er.12h 07/10/17 [Rx] Allergies/Adverse Reactions: 3 Allergy/AdvReac Type Severity Reaction Status Date / Time Penicillins Allergy Severe Anaphylaxis Verified 04/19/17 13:34 Date of admission: 07/06/17 21:08 Primary care physician: Merlene Lazo CNP Consults: 07/08/17 10:36 Consult to Occupational Therapy [CONS] Routine Comment: Evaluate, develop and implement POC Reason for Consult: therapy/placement needs Does patient have active BEDREST order?: No Is patient medically & hemodynamically stable?: Yes Consult to Physical Therapy [CONS] Routine Comment: Evaluate, develop and implement POC Reason for Consult: PT eval Does patient have active BEDREST order?: No Is patient medically & hemodynamically stable?: Yes - Constitutional Vitals: Temp Pulse Resp BP Pulse Ox 97.4 F L 88 18 115/63 92 07/10/17 07:47 07/10/17 07:47 07/10/17 07:47 07/10/17 07:47 07/10/17 07:47 Exam: GEN: NAD CVS: RRR. S1, S2, No m/r/g RESP: CTAB ABD: Soft, NT, ND, +BS EXT: No edema. 2+ DP. No rashes NEURO: Nonfocal - Patient Status Disposition: Home, Self-Care Condition: Fair Overall status at discharge: patient is progressing back to baseline - Discharge Instructions Instructions: Myocardial Infarction (DC), Pacemaker (DC) Follow Up With: Merlene Lazo GEOLOGIC TECHNICIAN [Primary Care Provider] - 07/13/17 9:00 am (web request sent on 07/07/17) Pepe Reese DO [Partnered Physician] - (1-2 weeks office will call an appt.) - Diet and Activity Activity: increase activity as tolerated Diet: diabetic diet, low salt diet
--- NOTE | 2017-07-10 12:52 | Cardiology Progress Note ---
Date of Encounter: 07/10/17 Time of Encounter: 09:15 Assessment and Plan (1) Elevated troponin Status: Acute Per cardiology: -Troponins 0.16, 0.21, 0.16. Appears to have chronically elevated troponins, dating back to 2014. -Patient had one episode of chest pain with exertion. NO recurrence. -No acute ischemic ECG changes noted. -Denies current chest pain. -On asa, plavix, statin, beta che, imdur, and ranexa. -Patient is already enrolled in cardiac rehab. Cardiac rehab consult not appropriate. -Suspect chronically elevated. (2) CAD (coronary artery disease) Status: Chronic Per cardiology: -Known CAD s/p [facility] 02/12/17 with 90% diagonal 1 with LO placed, 60% mid circumflex, 100% distal circumflex with LO placed, 70% OM2, 90% mid RCA vessel is small and non-dominant, has [place]ILMAN flow 3. -TTE 05/2017 with LVEF 25%, global hypokinesis. -Had one episode of chest pain during exertion, no recurrence. -Will continue to monitor in outpatient setting. Qualifiers: Coronary Disease-Associated Artery/Lesion type: [place] artery [place] vs. transplanted heart: [place] heart Associated angina: with unspecified angina Qualified Code(s): I25.119 - Atherosclerotic heart disease of [place] coronary artery with unspecified angina pectoris (3) Ischemic cardiomyopathy Status: Chronic Per cardiology: -Known ICM. -Last EF 25% 05/2017. -On BB, not on keanu/arb due to renal function. -Euvolemic on exam. -S/P ICD yesterday. Device check normal. -Chest x-ray post device without evidence of pneumothorax. -CHest x-ray today, however patient was discharge this am prior to chest x-ray. Per discussion with Dr.John Negron, we will monitor in outpatient setting. Discussion w patient/family: The assessment and plan as outlined above was discussed with the patient who expressed understanding and agreement. All questions were answered. Thank you for involving us in the care of your patient. Please call with any questions. Discussed and reviewed with and Dr.John Negron. Subjective Principal diagnosis: chest pain Interval history: Patient is s/p ICD. Denies chest pain. States she feels well today. Objective Vital Signs Temperature 98.6 F 07/06/17 16:26 Pulse Rate 107 07/06/17 16:26 Respiratory Rate 18 07/06/17 16:26 Blood Pressure 136/75 07/06/17 16:26 O2 Sat by Pulse Oximetry 95 07/06/17 16:26 Temperature 97.4 F L 07/10/17 07:47 Pulse Rate 88 07/10/17 07:47 Respiratory Rate 18 07/10/17 07:47 Blood Pressure 115/63 07/10/17 07:47 O2 Sat by Pulse Oximetry 92 07/10/17 07:47 Oxygen Delivery Oxygen Delivery Room Air General: Conversant, No Apparent Distress HEENT: Atraumatic, Normocephaly, Mucus Membranes Moist Neck: No JVD, Normal carotid pulses Cardiac: Reg Rate and Rhythm, Normal S1 and S2, No Murmur Lungs: Normal Breath Sounds, No Wheeze, Rales, Rhonchi Neuro: Alert and responsive, No focal deficits noted Abdomen: Soft, Non-Tender Skin: No rashes noted on visualized skin Musculoskeletal: No Chest Wall Tenderness Extremities: No Clubbing, No Cyanosis, No Edema, Normal Pulses Results 07/07/17 05:47 07/10/17 05:30 Lab Results Impressions Chest X-Ray 07/09/17 18:27 IMPRESSION: No pneumothorax is visible. D/ / Jose Manuel Ag MD / Jose Manuel Ag MD Interpreting Provider: Jose Manuel Ag MD - Imaging and Cardiology Chest Xray: report reviewed Echo: report reviewed Cardiac cath: report reviewed Consult Discharge Plan - Plan Instructions: Myocardial Infarction (DC), Pacemaker (DC) Referrals: Merlene Lazo CNP [Primary Care Provider] - 07/13/17 9:00 am (web request sent on 07/07/17) Pepe Reese DO [Partnered Physician] - (1-2 weeks office will call an appt.) Prescriptions: Ranolazine [Ranexa] 1,000 mg PO BID #60 tab.er.12h
--- NOTE | 2017-07-11 06:38 | Electrocardiograph Report ---
[address] [address] Test Date: 2017-07-09 Pat Name: Megha Alcantar Department: 112 Room: 2A63 Gender: F Voucher Clerk: RAVIN : 1945 Requested By: Lewis Sandoval Order Number: [id number] Reading MD: Silvio Rowley MD Measurements Intervals [place] Rate: 81 P: 36 FL: 116 QRS: 147 QRSD: 144 T: 60 QT: 454 QTc: 491 Interpretive Statements ELECTRONIC VENTRICULAR PACEMAKER Electronically Signed On 07-11-2017 6:36:17 EDT by Silvio Rowley MD
== END 2017-07-10 11:30 | disposition home or self-care (01) | DRG 227 ==
LOC: EMEROO 16:21 → 2ANU 16:21
PROVIDERS: ADMIT Internal Medicine Hematology & Oncology; ATTEND Internal Medicine

== ENCOUNTER 2021-08-24 18:01 | Inpatient (IN) ==
[2021-08-24] MEDS ORDERED: Isovue-370 500 ML BOTTLE IVP ONE (18:47)
[2021-08-24] MEDS ORDERED: Morphine Sulfate 2 MG/ML SYRINGE IVP ONE (18:48)
[2021-08-24 18:54] LABS: Basophils % 0.3 %; Eosinophils # 0.2 K/mcL (0.0-0.6); Hematocrit 34.2 % (35.3-44.9); Hemoglobin 11.5 g/dL (11.5-15.4); Immature Granulocytes % 0.6 % (0-4); Lymphocytes % 24.8 %; Mean Corpuscular HGB Conc 33.6 g/dL (31.6-35.5); Mean Corpuscular Hemoglobin 32.3 pg (28.0-33.3); Mean Corpuscular Volume 96.1 fL (83.0-100.0); Mean Platelet Volume 10.4 fL (9.4-12.4); Monocytes # 0.9 K/mcL (0.0-1.3); Monocytes % 11.5 %; Neutrophils # 4.8 K/mcL (1.6-8.9); Platelet Count 170 K/mcL (140-400); Red Blood Count 3.56 M/mcL (3.82-4.97); Red Cell Distribution Width 11.9 % (11.5-14.5); Segmented Neutrophils % 60.8 %
[2021-08-24 19:04] LABS: INR 1.1; Prothrombin Time 12.5 Seconds (9.4-12.1)
[2021-08-24 19:07] LABS: Activated Partial Thrombo Time 28.9 Seconds (26.0-36.0)
[2021-08-24 19:15] LABS: BUN/Creatinine Ratio 19 (6-26); Blood Urea Nitrogen 24 mg/dL (8-23); Calcium 8.9 mg/dL (8.6-10.3); Carbon Dioxide 24 mEq/L (23-29); Chloride 103 mEq/L (98-107); Glucose 131 mg/dL (70-105); Osmolality,Calculated 286 (280-300); Potassium 4.1 mEq/L (3.5-5.1); Sodium 135 mEq/L (136-145); Troponin I < 0.03 ng/mL (< 0.04); eGFR For African Americans 50 (> 60); eGFR For Non-African Americans 42 (> 60)
[2021-08-24] MEDS ORDERED: Melatonin 3 MG TABLET PO PRN (21:36)
[2021-08-24] MEDS ORDERED: Ondansetron 4 MG/2 ML VIAL IVP PRN (21:36)
[2021-08-24] MEDS ORDERED: Naloxone 0.4 MG/ML INJ IVP PRN (21:36)
[2021-08-24] MEDS ORDERED: Acetaminophen 325 MG TABLET PO PRN (21:36)
[2021-08-24] MEDS ORDERED: Ringers Solution, Lactated 1,000 ML IVC SCH (21:45)
[2021-08-25] MEDS: ALPRAZolam 0.5 MG TABLET PO PRN (02:42)
[2021-08-25 02:55] LABS: Hematocrit 34.9 % (35.3-44.9); Hemoglobin 11.5 g/dL (11.5-15.4); Mean Corpuscular Hemoglobin 32.7 pg (28.0-33.3); Mean Corpuscular Volume 99.1 fL (83.0-100.0); Mean Platelet Volume 10.5 fL (9.4-12.4); Platelet Count 141 K/mcL (140-400); Red Blood Count 3.52 M/mcL (3.82-4.97); Red Cell Distribution Width 12.2 % (11.5-14.5); White Blood Count 7.9 K/mcL (4.3-11.1)
[2021-08-25 03:22] LABS: Albumin 3.5 g/dL (3.5-5.7); Albumin/Globulin Ratio 1.4 (1.1-2.2); Bilirubin,Total 0.4 mg/dL (0.3-1.0); Calcium 8.8 mg/dL (8.6-10.3); Globulin 2.5 g/dL (2.4-3.5); Magnesium 1.9 mg/dL (1.6-2.6); Phosphorous 3.9 mg/dL (2.7-4.5)
[2021-08-25 03:24] LABS: C-Reactive Protein 29 mg/L (Less than 10)
[2021-08-25 04:58] LABS: INR 1.1; Prothrombin Time 12.5 Seconds (9.4-12.1)
[2021-08-25 05:05] LABS: Activated Partial Thrombo Time 29.3 Seconds (26.0-36.0)
[2021-08-25] MEDS ORDERED: Perflutren Lipid Microsphere 1.3 ML in 0.9 % Sodium Chloride 8.7 ML IVP PRN (06:13)
[2021-08-25] MEDS ORDERED: *HR* Dextrose 50 % in Water (Syg) 50 ML SYRINGE IVP PRN (06:17)
[2021-08-25] MEDS ORDERED: Dextrose 4 GM Chewable Tablets PO PRN ×2 (06:17)
[2021-08-25] MEDS ORDERED: D5% in Water 1,000 ML IVC PRN (06:17)
[2021-08-25 06:52] LABS: Thyroid Stimulating Hormone 6.724 mcIU/mL (0.340-5.600)
[2021-08-25] MEDS: Insulin LISPRO 300 UNITS/3 ML VIAL SUBQ SCH ×3 (07:07→17:26)
[2021-08-25] MEDS: Metoprolol XL (24 HR) Succ 50 MG TAB.ER.24H PO SCH (08:09)
[2021-08-25] MEDS: Ranolazine 500 MG TAB.ER.12H PO SCH ×2 (08:09→21:38)
[2021-08-25] MEDS: Aspirin 81 MG TAB.CHEW PO SCH (08:09)
[2021-08-25] MEDS: Insulin DETEMIR 100 UNIT/ML X5UNITS SUBQ SCH (08:10)
[2021-08-25 09:22] LABS: Estimated Average Glucose 166 mg/dl; Hemoglobin A1C 7.4 %
[2021-08-25 10:17] LABS: Creatine Kinase 257 Units/L (30-223)
[2021-08-25 10:46] LABS: Folate 20.7 ng/mL (3.0-16.0)
[2021-08-25] MEDS: *HR* Heparin 5,000 UNIT/ML VIAL SQ SCH ×2 (16:38→21:38)
[2021-08-26] MEDS: ALPRAZolam 0.5 MG TABLET PO PRN (01:07)
[2021-08-26] MEDS: *HR* Heparin 5,000 UNIT/ML VIAL SQ SCH (05:10)
[2021-08-26 05:38] LABS: Hematocrit 34.7 % (35.3-44.9); Hemoglobin 11.5 g/dL (11.5-15.4); Mean Corpuscular HGB Conc 33.1 g/dL (31.6-35.5); Mean Corpuscular Hemoglobin 32.4 pg (28.0-33.3); Mean Corpuscular Volume 97.7 fL (83.0-100.0); Platelet Count 174 K/mcL (140-400); Red Blood Count 3.55 M/mcL (3.82-4.97); Red Cell Distribution Width 11.9 % (11.5-14.5); White Blood Count 7.3 K/mcL (4.3-11.1)
[2021-08-26 05:53] LABS: Calcium 9.4 mg/dL (8.6-10.3); Magnesium 2.1 mg/dL (1.6-2.6); Potassium 4.2 mEq/L (3.5-5.1)
[2021-08-26 07:38] VITALS: TEMP 98.2
[2021-08-26] MEDS: Metoprolol XL (24 HR) Succ 50 MG TAB.ER.24H PO SCH (07:38)
[2021-08-26] MEDS: Aspirin 81 MG TAB.CHEW PO SCH (07:38)
[2021-08-26] MEDS: Ranolazine 500 MG TAB.ER.12H PO SCH (07:38)
[2021-08-26] MEDS ORDERED: ALPRAZolam 0.5 MG TABLET PO PRN (07:45)
[2021-08-26] MEDS: Insulin LISPRO 300 UNITS/3 ML VIAL SUBQ SCH (08:52)
[2021-08-26] MEDS ORDERED: Gabapentin 300 MG CAPSULE PO SCH (09:00)
[2021-08-26] MEDS ORDERED: Famotidine 20 MG TABLET PO SCH (09:00)
[2021-08-26] MEDS ORDERED: NON-FORMULARY MEDICATION 1 EACH EACH (Insulin Degludec [Tresiba Flextouch U-200] 200 UNIT/ SQ SCH (09:00)
[2021-08-26] MEDS ORDERED: Furosemide 20 MG TABLET PO SCH (09:00)
[2021-08-26] MEDS ORDERED: carvediloL 6.25 MG TABLET PO SCH (09:00)
[2021-08-26] MEDS ORDERED: Isosorbide MONOnitrate (24 HR) 30 MG TAB.ER.24H PO SCH (09:00)
[2021-08-26] MEDS: Insulin DETEMIR 100 UNIT/ML X5UNITS SUBQ SCH (10:06)
[2021-08-26 10:36] VITALS: BP 114/65; PULSE 75; O2SAT 97
== END 2021-08-26 12:27 | disposition home health service (06) | DRG 313 ==
LOC: 3BNU 18:01 → EMEROOARM 18:01 → SUATTDRO 21:29 → 3BNU 22:31
PROVIDERS: ADMIT Internal Medicine; ATTEND Internal Medicine